=== PATIENT | female | born 1960 | race Caucasian/White ===

== ENCOUNTER 2020-10-21 10:15 | Outpatient (REF) | payer OTHER, SELFPAY ==
[2020-10-21 11:30] LABS: Estimated Average Glucose 160 mg/dL; Hemoglobin A1c % 7.2 %
[2020-10-21 11:35] LABS: Anion Gap 12 (12-20); Blood Urea Nitrogen 15 mg/dL (9-16); Calcium 8.9 mg/dL (8.4-10.2); Carbon Dioxide 30 mmol/L (22-29); Chloride 102 mmol/L (96-108); Cholesterol 276 mg/dL; Estimated Glomerular Filt Rate > 60; Glucose Fasting 156 mg/dL (60-99); HDL Cholesterol 54 mg/dL; LDL Cholesterol Calculated 165 mg/dl; Potassium 4.3 mmol/L (3.3-5.1); Sodium 140 mmol/L (135-145); Triglycerides 285 mg/dL
[2020-10-21 12:02] LABS: Creatinine Urine 111.89 mg/dL; Microalbum/Creatinine Ratio Ur 14.2 ug/mg cr
== END 2020-10-21 10:16 | disposition home or self-care (01) ==
LOC: HO.HMGCLDS 10:15
PROVIDERS: PCP Internal Medicine; Visit Provider Internal Medicine
DX: E13.9 Other specified diabetes mellitus without complications (principal); E78.9 Disorder of lipoprotein metabolism, unspecified; K76.0 Fatty (change of) liver, not elsewhere classified; I10 Essential (primary) hypertension
CPT/HCPCS: 36415; 80048; 80061; 82043; 83036

== ENCOUNTER 2021-05-06 08:29 | Outpatient (REF) | payer OTHER, SELFPAY ==
[2021-05-06 11:37] LABS: MANUAL DIFF FLAG NO
[2021-05-06 11:54] LABS: Basophils Absolute Auto 0.1 X10*3/uL (0.0-0.2); Basophils Percent Auto 0.9 % (0-2); Eosinophils Absolute Auto 0.2 X10*3/uL (0.0-0.4); Eosinophils Percent Auto 2.1 % (0-4); Hematocrit 41.4 % (37-47); Hemoglobin 13.5 g/dl (12.0-16.0); Imm Gran Abs Auto 0.02 X10*3/uL (0.00-0.03); Imm Gran Pct Auto 0.3 % (0.0-0.4); Lymphocytes Absolute Auto 3.1 X10*3/uL (1.2-4.9); Lymphocytes Percent Auto 44.8 % (20-40); Mean Corpuscular HGB Conc 32.6 g/dl (31.0-35.0); Mean Corpuscular Hemoglobin 29.5 pg (27.0-33.0); Mean Corpuscular Volume 90.4 fL (80-98); Mean Platelet Volume 11.5 fL (9.4-12.3); Monocytes Absolute Auto 0.5 X10*3/uL (0.1-1.2); Monocytes Percent Auto 7.7 % (2-11); Neutrophils Absolute Auto 3.1 X10*3/uL (2.0-8.3); Neutrophils Percent Auto 44.2 % (45-73); Platelet Count 257 X10*3/uL (160-400); Red Blood Count 4.58 X10*6/uL (4.20-5.50); Red Cell Distribution Width 12.7 % (11.0-16.0)
[2021-05-06 11:59] LABS: Creatinine Urine 169.47 mg/dL; Microalbum/Creatinine Ratio Ur 4.7 ug/mg cr
[2021-05-06 12:01] LABS: Alanine Aminotransferase 46 U/L (0-31); Alkaline Phosphatase 70 U/L (39-117); Anion Gap 13 (12-20); Aspartate Amino Transferase 28 U/L (5-31); Bilirubin Total 0.4 mg/dL (0.0-1.0); Blood Urea Nitrogen 15 mg/dL (9-16); Calcium 9.3 mg/dL (8.4-10.2); Carbon Dioxide 26 mmol/L (22-29); Chloride 104 mmol/L (96-108); Cholesterol 265 mg/dL; Estimated Glomerular Filt Rate > 60; Glucose Fasting 150 mg/dL (60-99); HDL Cholesterol 46 mg/dL; LDL Cholesterol Calculated 167 mg/dl; Potassium 4.2 mmol/L (3.3-5.1); Sodium 139 mmol/L (135-145); Total Protein 6.9 g/dL (6.5-8.0); Triglycerides 261 mg/dL
[2021-05-06 12:29] LABS: Estimated Average Glucose 143 mg/dL; Hemoglobin A1c % 6.6 %
[2021-05-07 05:51] LABS: LDL Cholesterol Direct 180 mg/dL (<100)
== END 2021-05-06 08:30 | disposition home or self-care (01) ==
LOC: HO.HMGCLDS 08:29
PROVIDERS: PCP Internal Medicine; Visit Provider Internal Medicine
DX: E13.9 Other specified diabetes mellitus without complications (principal); E78.9 Disorder of lipoprotein metabolism, unspecified; I10 Essential (primary) hypertension; K21.9 Gastro-esophageal reflux disease without esophagitis; K76.0 Fatty (change of) liver, not elsewhere classified; E66.09 Other obesity due to excess calories; Z68.32 Body mass index [BMI] 32.0-32.9, adult
CPT/HCPCS: 36415; 80053; 80061; 82043; 83036; 83721; 85025

== ENCOUNTER 2021-07-20 09:09 | Outpatient (REF) | payer OTHER, SELFPAY ==
--- NOTE | ~2021-07-20 | US_ITS ---
EXAMINATION: US ABDOMEN COMPLETE CLINICAL INFORMATION: Right upper quadrant pain. COMPARISON: CT abdomen and pelvis without contrast dated 04/21/2018. Ultrasound abdomen complete dated 04/01/2016. TECHNIQUE: Real-time imaging of the abdominal viscera. FINDINGS: PANCREAS: Normal. ABDOMINAL AORTA: The proximal, mid, and distal segments are normal in caliber. INFERIOR VENA CAVA: Visualized portions are normal. LIVER: Liver is slightly enlarged. Liver echotexture is increased probably representing fatty infiltration. There is a hypoechoic area adjacent to the gallbladder, characteristic location of focal fatty sparing. No other focal hepatic lesion. There is no intrahepatic biliary duct dilatation seen. GALLBLADDER: Normal. COMMON BILE DUCT: Normal in caliber measuring 0.4 cm in diameter. RIGHT KIDNEY: Normal. No hydronephrosis. No renal calculi or focal parenchymal lesions. The kidney measures 11.4 cm in maximum dimension. LEFT KIDNEY: Normal. No hydronephrosis. No renal calculi or focal parenchymal lesions. The kidney measures 11.5 cm in maximum dimension. SPLEEN: Normal. The spleen measures 10 cm in maximum dimension. FREE FLUID: None. US/US abdomen complete IMPRESSION: Enlarged echogenic liver probably representing fatty infiltration.
== END 2021-07-20 09:10 | disposition home or self-care (01) ==
LOC: HO.US 09:09
PROVIDERS: PCP Internal Medicine; Visit Provider Internal Medicine
DX: R10.11 Right upper quadrant pain (principal)
CPT/HCPCS: 76700

== ENCOUNTER 2022-01-01 08:37 | Outpatient (REF) | payer OTHER, SELFPAY ==
--- NOTE | ~2022-01-01 | XR_ITS ---
EXAMINATION: XR CHEST CLINICAL INFORMATION: Acute bronchitis COMPARISON: Previous chest x-ray September 2008 TECHNIQUE: 2 views of the chest were obtained. FINDINGS: The cardiac and mediastinal contours are stable. There is central bronchial wall thickening at the lung bases. The lungs are clear. There is no pleural effusion or pneumothorax. Bony structures are unremarkable. XR/XR chest 2V IMPRESSION: Central bronchial wall thickening of the lung bases. No evidence of pneumonia.
== END 2022-01-01 08:38 | disposition home or self-care (01) ==
LOC: HO.HMGCX 08:37
PROVIDERS: PCP Internal Medicine; Visit Provider Internal Medicine
DX: J20.9 Acute bronchitis, unspecified (principal)
CPT/HCPCS: 71046

== ENCOUNTER 2022-05-18 08:18 | Outpatient (REF) | payer OTHER, SELFPAY ==
[2022-05-18 12:05] LABS: Estimated Average Glucose 203 mg/dL; Hemoglobin A1c % 8.7 %
[2022-05-18 12:35] LABS: Creatinine Urine 123.32 mg/dL; Microalbum/Creatinine Ratio Ur 8.9 ug/mg cr
[2022-05-18 12:40] LABS: Alanine Aminotransferase 32 U/L (0-31); Albumin Level 4.1 g/dL (3.5-5.0); Alkaline Phosphatase 86 U/L (39-117); Anion Gap 15 (12-20); Aspartate Amino Transferase 22 U/L (5-31); Bilirubin Total < 0.2 mg/dL (0.0-1.0); Blood Urea Nitrogen 14 mg/dL (9-16); Calcium 9.4 mg/dL (8.4-10.2); Carbon Dioxide 26 mmol/L (22-29); Chloride 102 mmol/L (96-108); Estimated Glomerular Filt Rate > 60; Glucose Random 222 mg/dL (60-115); Potassium 4.9 mmol/L (3.3-5.1); Sodium 138 mmol/L (135-145); Total Protein 7.1 g/dL (6.5-8.0)
[2022-05-19 10:07] LABS: LDL Cholesterol Direct 212 mg/dL (<100)
== END 2022-05-18 08:19 | disposition home or self-care (01) ==
LOC: HO.CHCLDS 08:18
PROVIDERS: Visit Provider Internal Medicine
DX: K76.0 Fatty (change of) liver, not elsewhere classified (principal); K21.9 Gastro-esophageal reflux disease without esophagitis; E78.9 Disorder of lipoprotein metabolism, unspecified; E66.9 Obesity, unspecified; E13.9 Other specified diabetes mellitus without complications; I10 Essential (primary) hypertension
CPT/HCPCS: 36415; 80053; 82043; 83036; 83721

== ENCOUNTER 2022-06-29 07:22 | Outpatient (REF) | payer OTHER, SELFPAY ==
--- NOTE | ~2022-06-29 | CT_ITS ---
EXAMINATION: CT ABDOMEN AND PELVIS WITH CONTRAST CLINICAL INFORMATION: Right lower quadrant pain COMPARISON: None TECHNIQUE: Multidetector volumetric images were obtained from the superior aspect of the liver through the pubic symphysis following administration 85 mL of Omnipaque 350 intravenous contrast. Sagittal and coronal reformatted images were obtained on the technologist's workstation. Oral contrast: Yes This CT examination was performed using dose optimization techniques as appropriate, variously including the following: *Automated exposure control *Adjustment of mA and/or kV according to patient size (this includes techniques or standardized protocols for targeted exams where dose is matched to indication/reason for exam; i.e. extremities or head) *Use of iterative reconstruction technique DLP: 501 mGy-cm FINDINGS: LUNG BASES: The visualized lung bases are unremarkable. LIVER, GALLBLADDER, AND BILIARY TREE: Fatty infiltration of the liver. No focal hepatic lesion or biliary ductal dilatation is present. The gallbladder is unremarkable with no evidence of radiopaque gallstones, gallbladder wall thickening, or obvious pericholecystic inflammatory changes. PANCREAS: Unremarkable. SPLEEN: Unremarkable. ADRENAL GLANDS: Unremarkable. KIDNEYS AND URETERS: The kidneys are normal in size, shape, and attenuation. No hydronephrosis, hydroureter, or calculi seen. No perinephric stranding. BLADDER: Unremarkable. GASTROINTESTINAL TRACT: The small and large bowel are unremarkable. The appendix is not identified with certainty. No inflammatory changes in the right lower quadrant. ABDOMINAL WALL: No significant hernia is appreciated. LYMPH NODES: Normal. VASCULAR: Unremarkable. PELVIC VISCERA: The uterus is been removed. No pelvic mass. OSSEOUS STRUCTURES: Degenerative changes of the spine. CT/CT abdomen pelvis w IV con IMPRESSION: Appendix not identified with certainty. No inflammatory changes in the right lower quadrant. Fatty liver. Fleischner guidelines were followed.
[2022-06-29] MEDS: iohexoL 350 MG/ML 100 ML INFUS..BTL IV (10:17)
[2022-06-29] MEDS: Barium Sulfate Oral (Mocha) 450 ML ORAL.SUSP 900 ML PO (10:19)
[2022-07-01 10:22] LABS: Creatinine POC 0.7 mg/dL (0.5-1.4); GFR POC > 60
== END 2022-06-29 07:23 | disposition home or self-care (01) ==
LOC: HO.CT 07:22
PROVIDERS: PCP Internal Medicine; Visit Provider Internal Medicine
DX: R10.31 Right lower quadrant pain (principal)
CPT/HCPCS: 74177; 82565; Q9967

== ENCOUNTER → 2022-08-24 08:43 | Outpatient (BNVA) | payer OTHER, SELFPAY | PROVIDERS: PCP Internal Medicine; Visit Provider Physician Assistant | DX: R10.31 Right lower quadrant pain (principal); K76.0 Fatty (change of) liver, not elsewhere classified; D12.6 Benign neoplasm of colon, unspecified | CPT/HCPCS: 99202 ==

== ENCOUNTER 2022-08-31 08:03 | Outpatient (REF) | payer OTHER, SELFPAY ==
[2022-08-31 11:28] LABS: MANUAL DIFF FLAG NO
[2022-08-31 11:30] LABS: Basophils Absolute Auto 0.1 X10*3/uL (0.0-0.2); Basophils Percent Auto 0.5 % (0-2); Eosinophils Absolute Auto 0.1 X10*3/uL (0.0-0.4); Eosinophils Percent Auto 1.1 % (0-4); Hematocrit 43.5 % (37.0-47.0); Hemoglobin 14.2 g/dl (12.0-16.0); Imm Gran Abs Auto 0.04 X10*3/uL (0.00-0.03); Imm Gran Pct Auto 0.4 % (0.0-0.4); Lymphocytes Absolute Auto 3.9 X10*3/uL (1.2-4.9); Lymphocytes Percent Auto 40.1 % (20-40); Mean Corpuscular HGB Conc 32.6 g/dl (31.0-35.0); Mean Corpuscular Hemoglobin 29.3 pg (27.0-33.0); Mean Corpuscular Volume 89.9 fL (80.0-98.0); Mean Platelet Volume 11.9 fL (9.4-12.3); Monocytes Absolute Auto 0.7 X10*3/uL (0.1-1.2); Monocytes Percent Auto 6.8 % (2-11); Neutrophils Percent Auto 51.1 % (45-73); Platelet Count 273 X10*3/uL (160-400); Red Blood Count 4.84 X10*6/uL (4.20-5.50); Red Cell Distribution Width 12.5 % (11.0-16.0); White Blood Count 9.7 X10*3/uL (4.8-10.8)
[2022-08-31 11:51] LABS: Estimated Average Glucose 246 mg/dL; Hemoglobin A1c % 10.2 %
[2022-08-31 12:04] LABS: Cholesterol 198 mg/dL; HDL Cholesterol 45 mg/dL; LDL Cholesterol Calculated 96 mg/dl; Triglycerides 287 mg/dL
== END 2022-08-31 08:04 | disposition home or self-care (01) ==
LOC: HO.HMGCLDS 08:03
PROVIDERS: PCP Internal Medicine; Visit Provider Physician Assistant
DX: R10.31 Right lower quadrant pain (principal); K76.0 Fatty (change of) liver, not elsewhere classified
CPT/HCPCS: 36415; 80061; 83036; 85025

== ENCOUNTER 2023-01-05 06:56 | Outpatient (REF) | payer OTHER, SELFPAY ==
[2023-01-05 11:59] LABS: Alanine Aminotransferase 32 U/L (0-31); Albumin Level 3.9 g/dL (3.5-5.0); Alkaline Phosphatase 61 U/L (39-117); Anion Gap 13 (12-20); Aspartate Amino Transferase 28 U/L (5-31); Bilirubin Total 0.7 mg/dL (0.0-1.0); Blood Urea Nitrogen 14 mg/dL (9-16); Calcium 9.6 mg/dL (8.4-10.2); Carbon Dioxide 26 mmol/L (22-29); Chloride 104 mmol/L (96-108); Estimated Glomerular Filt Rate > 60; Glucose Random 121 mg/dL (60-115); Potassium 4.2 mmol/L (3.3-5.1); Sodium 139 mmol/L (135-145); Total Protein 7.3 g/dL (6.5-8.0)
[2023-01-05 12:13] LABS: Estimated Average Glucose 146 mg/dL; Hemoglobin A1c % 6.7 %
[2023-01-07 11:04] LABS: LDL Cholesterol Direct 99 mg/dL (<100)
== END 2023-01-05 06:57 | disposition home or self-care (01) ==
LOC: HO.HMGCLDS 06:56
PROVIDERS: PCP Internal Medicine; Visit Provider Internal Medicine
DX: E78.9 Disorder of lipoprotein metabolism, unspecified (principal); I10 Essential (primary) hypertension
CPT/HCPCS: 36415; 80053; 83036; 83721

== ENCOUNTER 2023-08-18 07:08 | Outpatient (REF) | payer MEDICARE, SELFPAY ==
[2023-08-18 11:16] LABS: MANUAL DIFF FLAG NO
[2023-08-18 11:45] LABS: Basophils Absolute Auto 0.1 X10*3/uL (0.0-0.2); Eosinophils Absolute Auto 0.1 X10*3/uL (0.0-0.4); Eosinophils Percent Auto 1.1 % (0-4); Hematocrit 43.1 % (37.0-47.0); Imm Gran Abs Auto 0.03 X10*3/uL (0.00-0.03); Imm Gran Pct Auto 0.4 % (0.0-0.4); Lymphocytes Absolute Auto 3.4 X10*3/uL (1.2-4.9); Mean Corpuscular HGB Conc 32.5 g/dl (31.0-35.0); Mean Corpuscular Hemoglobin 29.2 pg (27.0-33.0); Mean Platelet Volume 11.6 fL (9.4-12.3); Monocytes Absolute Auto 0.6 X10*3/uL (0.1-1.2); Monocytes Percent Auto 7.5 % (2-11); Neutrophils Absolute Auto 3.8 x10*3/uL (2.0-8.3); Platelet Count 243 X10*3/uL (160-400); Red Blood Count 4.79 X10*6/uL (4.20-5.50); Red Cell Distribution Width 12.4 % (11.0-16.0)
[2023-08-18 11:47] LABS: Estimated Average Glucose 151 mg/dL; Hemoglobin A1c % 6.9 % (<6.0)
[2023-08-18 11:52] LABS: Alanine Aminotransferase 27 U/L (0-31); Alkaline Phosphatase 70 U/L (39-117); Anion Gap 11 (12-20); Aspartate Amino Transferase 22 U/L (5-31); Bilirubin Total 0.4 mg/dL (0.0-1.0); Blood Urea Nitrogen 15 mg/dL (9-16); Calcium 9.5 mg/dL (8.4-10.2); Carbon Dioxide 29 mmol/L (22-29); Chloride 103 mmol/L (96-108); Cholesterol 288 mg/dL (<200); Estimated Glomerular Filt Rate > 60; Glucose Random 160 mg/dL (60-115); HDL Cholesterol 51 mg/dL (>40); LDL Cholesterol Calculated 197 mg/dL (<100); Potassium 4.5 mmol/L (3.3-5.1); Sodium 138 mmol/L (135-145); Total Protein 7.3 g/dL (6.5-8.0); Triglycerides 201 mg/dL (<150)
[2023-08-18 12:18] LABS: Microalbum/Creatinine Ratio Ur 8.6 ug/mg cr (<30)
[2023-08-19 14:22] LABS: LDL Cholesterol Direct 212 mg/dL (<100)
== END 2023-08-18 07:09 | disposition home or self-care (01) ==
LOC: HO.HMGCLDS 07:08
PROVIDERS: PCP Internal Medicine; Visit Provider Internal Medicine
DX: I10 Essential (primary) hypertension (principal); E13.9 Other specified diabetes mellitus without complications; K76.0 Fatty (change of) liver, not elsewhere classified; E78.9 Disorder of lipoprotein metabolism, unspecified; K21.9 Gastro-esophageal reflux disease without esophagitis; E66.9 Obesity, unspecified
CPT/HCPCS: 36415; 80053; 80061; 82043; 82570; 83036; 83721; 85025

== ENCOUNTER 2023-10-05 12:00 | Outpatient (AMB) | payer MEDICARE, SELFPAY ==
--- NOTE | 2023-10-05 12:01 | MHC.PC.OV ---
Vital Signs 10/05/23 12:02 Height 5 ft 3 in Weight 178 lb 2 oz BMI 31.5 BP 140/74 H Blood Pressure Location Rt brachial Position Sitting Pulse 110 H Pulse Source Pulse Oximeter Pulse Oximetry (%) 97 Oxygen Delivery Method Room Air Intake Visit Reasons: Blood Sugar F/U Allergies Penicillins Allergy (Mild, Verified 01/12/23 10:10) RASH Medication List - Last Reconciled 10/05/23 by Isiah Oliva MD blood sugar diagnostic (FreeStyle Lite Strips) Use to check fasting blood sugar and random blood sugar daily blood-glucose meter (FreeStyle Lite Meter kit) Use to check fasting blood sugar and a random blood sugar during the day. cholecalciferol (vitamin D3) 10 mcg PO DAILY estradiol 1 patch transdermal 2XW glipizide 10 mg PO BID 30 days lancets (FreeStyle Lancets) Use to check fasting blood sugar and random blood sugar daily lisinopril 30 mg PO DAILY 30 days Tobacco use date assessed: 10/05/23 Fall risk assessment: No Falls in past year Last assessed Fall Risk: 10/05/23 HPI Blood Sugar F/U HPI Details Patient is 63-year-old female came in today for follow-up appointment Last time seen was December of last year, patient was supposed to come in in 4 months for follow-up appointment but she did not Lipid disorder: LDL is 212, she stopped statin in May when she lost insurance I have sent small dose of rosuvastatin 5 mg to start, she was on 40 mg of simvastatin before, patient is reluctant to start the medications so I am starting it slow She has been exercising and has noticed that her sugar dropped when she walks I am reducing the dose of glipizide to 10 mg at night and 5 mg in the morning, her hemoglobin A1c came back at 6.9 Right-sided sciatica : She has had cortisone injection by [facility] and spine in the past currently having similar pain radiating to right leg However patient says that at this time she is taking it easy and will see if it gets better. Blood pressure is stable, she is on Lisinopril 30 mg BMI is elevated need to lose weight Follow-up 4 months labs to be repeated before visit [facility] Medical History Lipid disorder Chronic GERD Fatty liver Diabetes 1.5, managed as type 2 Hypertension, essential Surgical History H/O colonoscopy History of esophagogastroduodenoscopy (EGD) History of microdiscectomy History of hysterectomy History of appendectomy History of tonsillectomy History of section Family History Father CVD (cardiovascular disease) History of heart attack Mother Mouth cancer Diabetes mellitus History of open heart surgery Brother Heart problem Brother History of open heart surgery Brother History of open heart surgery Daughter No problems noted. Son No problems noted. Son No problems noted. Sister No problems noted. Sister No problems noted. Sister No problems noted. Sister No problems noted. Social History Housing: House Alcohol intake: current Alcohol intake frequency: a few times a month Patient Tobacco Use Status: Former Tobacco user Years Smoked: 5 yrs e-Cigarette/Vaping Use: Never Used Current occupational status: unemployed Cognitive needs: No Hearing needs: No Vision needs: Yes Questionnaire Thrive Questionnaire Date Thrive assessed: 04/29/21 Review of Systems Const Denies chills and Denies fever(s) ENT Denies epistaxis and Denies nasal discharge Card Denies chest pain Resp Denies chest congestion, Denies cough and Denies hemoptysis GI Denies diarrhea and Denies nausea Skin/Breast Denies rash Neuro Reports no additional complaints Psych Reports no additional complaints Endo Reports no additional complaints Physical exam (Primary Care) Vital Signs: Last Vital Signs Pulse 110 H 10/05/23 12:02 BP 140/74 H 10/05/23 12:02 Pulse Ox 97 10/05/23 12:02 Oxygen Delivery Method Room Air 10/05/23 12:02 BMI result Body Mass Index 31.5 Tobacco/Smoking Status: Tobacco use Status Tobacco use date assessed 10/05/23 10/05/23 12:08 Patient Tobacco Use Status Former Tobacco user 10/05/23 12:03 e-Cigarette/Vaping Use Never Used 10/05/23 12:03 Thrive Assessment: Date of Thrive Assessment Date Thrive assessed 04/29/21 10/05/23 12:03 Const General: cooperative, comfortable and no acute distress Orientation/consciousness: patient oriented x3 [facility] Head: Yes normocephalic Eyes General: appearance normal, both eyes and all related structures Neck Neck: Yes supple Resp Effort & Inspection: normal respiratory effort, no cough and no stridor Cardio Rhythm: regular rhythm Heart sounds: S1 normal heart sound present and S2 normal heart sound present Skin General skin exam: turgor normal Neuro General: patient oriented x3, tone normal and moves all extremities Extrem Right lower extremity: no edema Left lower extremity: no edema Assessment and Plan Assessment & Plan (1) Hypertension, essential: Code(s): I10 - Essential (primary) hypertension (2) Fatty liver: Code(s): K76.0 - Fatty (change of) liver, not elsewhere classified (3) Chronic GERD: Code(s): K21.9 - Gastro-esophageal reflux disease without esophagitis (4) Lipid disorder: Code(s): E78.9 - Disorder of lipoprotein metabolism, unspecified (5) Obesity: Code(s): E66.9 - Obesity, unspecified Qualifiers: Body mass index: BMI 32.0-32.9 Obesity classification: adult class 1 (BMI 30 - 34.9) Obesity type: due to excess calories Serious obesity comorbidity presence: with serious comorbidity Qualified Code(s): E66.09 - Other obesity due to excess calories; Z68.32 - Body mass index [BMI] 32.0-32.9, adult (6) Diabetes 1.5, managed as type 2: Code(s): E13.9 - Other specified diabetes mellitus without complications Plan Patient is 63-year-old female came in today for follow-up appointment Last time seen was December of last year, patient was supposed to come in in 4 months for follow-up appointment but she did not Lipid disorder: LDL is 212, she stopped statin in May when she lost insurance I have sent small dose of rosuvastatin 5 mg to start, she was on 40 mg of simvastatin before, patient is reluctant to start the medications so I am starting it slow She has been exercising and has noticed that her sugar dropped when she walks I am reducing the dose of glipizide to 10 mg at night and 5 mg in the morning, her hemoglobin A1c came back at 6.9 Right-sided sciatica : She has had cortisone injection by [facility] and spine in the past currently having similar pain radiating to right leg However patient says that at this time she is taking it easy and will see if it gets better. Blood pressure is stable, she is on Lisinopril 30 mg BMI is elevated need to lose weight Follow-up 4 months labs to be repeated before visit Orders: Orders Microalbumin, Random (w Creat) 3 Months E13.9 - Other specified diabetes mellitus without complications, E66.9 - Obesity, unspecified, E78.9 - Disorder of lipoprotein metabolism, unspecified, I10 - Essential (primary) hypertension, K21.9 - Gastro-esophageal reflux disease without esophagitis, K76.0 - Fatty (change of) liver, not elsewhere classified Hemoglobin A1c 3 Months E13.9 - Other specified diabetes mellitus without complications, E66.9 - Obesity, unspecified, E78.9 - Disorder of lipoprotein metabolism, unspecified, I10 - Essential (primary) hypertension, K21.9 - Gastro-esophageal reflux disease without esophagitis, K76.0 - Fatty (change of) liver, not elsewhere classified Comprehensive [place]. Panel Fast 3 Months E13.9 - Other specified diabetes mellitus without complications, E66.9 - Obesity, unspecified, E78.9 - Disorder of lipoprotein metabolism, unspecified, I10 - Essential (primary) hypertension, K21.9 - Gastro-esophageal reflux disease without esophagitis, K76.0 - Fatty (change of) liver, not elsewhere classified Lipid Panel 3 Months E13.9 - Other specified diabetes mellitus without complications, E66.9 - Obesity, unspecified, E78.9 - Disorder of lipoprotein metabolism, unspecified, I10 - Essential (primary) hypertension, K21.9 - Gastro-esophageal reflux disease without esophagitis, K76.0 - Fatty (change of) liver, not elsewhere classified Medications: Refilled rosuvastatin 5 mg PO DAILY 90 tabs 0RF 90 days Coding Level of Care Code Est Pt Level 4 (00174) Diagnoses Hypertension, essential I10 Fatty liver K76.0 Chronic GERD K21.9 Lipid disorder E78.9 Class 1 obesity due to excess calories with serious comorbidity and body mass index (BMI) of 32.0 to 32.9 in adult E66.09; Z68.32 Body mass index: BMI 32.0-32.9 Obesity classification: adult class 1 (BMI 30 - 34.9) Obesity type: due to excess calories Serious obesity comorbidity presence: with serious comorbidity Diabetes 1.5, managed as type 2 E13.9
[2023-10-05 12:02] VITALS: BP 140/74; PULSE 110; O2SAT 97; BMI 31.5
== END 2023-10-05 12:19 | disposition home or self-care (01) ==
PROVIDERS: PCP Internal Medicine; Visit Provider Internal Medicine
DX: I10 Essential (primary) hypertension (principal); K76.0 Fatty (change of) liver, not elsewhere classified; K21.9 Gastro-esophageal reflux disease without esophagitis; E13.9 Other specified diabetes mellitus without complications; E78.9 Disorder of lipoprotein metabolism, unspecified; E66.09 Other obesity due to excess calories; Z68.32 Body mass index [BMI] 32.0-32.9, adult
CPT/HCPCS: 99214

== ENCOUNTER 2024-02-06 06:26 | Outpatient (REF) | payer MEDICARE, SELFPAY ==
[2024-02-06 10:14] LABS: MANUAL DIFF FLAG NO
[2024-02-06 10:16] LABS: Basophils Absolute Auto 0.1 X10*3/uL (0.0-0.2); Basophils Percent Auto 0.7 % (0-2); Eosinophils Absolute Auto 0.1 X10*3/uL (0.0-0.4); Eosinophils Percent Auto 1.5 % (0-4); Hemoglobin 13.3 g/dl (12.0-16.0); Imm Gran Abs Auto 0.03 X10*3/uL (0.00-0.03); Imm Gran Pct Auto 0.4 % (0.0-0.4); Lymphocytes Absolute Auto 3.3 X10*3/uL (1.2-4.9); Lymphocytes Percent Auto 38.8 % (20-40); Mean Corpuscular HGB Conc 32.4 g/dl (31.0-35.0); Mean Corpuscular Hemoglobin 29.2 pg (27.0-33.0); Mean Corpuscular Volume 90.1 fL (80.0-98.0); Mean Platelet Volume 11.3 fL (9.4-12.3); Monocytes Absolute Auto 0.6 X10*3/uL (0.1-1.2); Monocytes Percent Auto 7.1 % (2-11); Neutrophils Absolute Auto 4.4 x10*3/uL (2.0-8.3); Neutrophils Percent Auto 51.5 % (45-73); Platelet Count 252 X10*3/uL (160-400); Red Blood Count 4.55 X10*6/uL (4.20-5.50); Red Cell Distribution Width 12.8 % (11.0-16.0); White Blood Count 8.5 X10*3/uL (4.8-10.8)
[2024-02-06 10:24] LABS: Estimated Average Glucose 148 mg/dL; Hemoglobin A1c % 6.8 % (<6.0)
[2024-02-06 10:43] LABS: Alanine Aminotransferase 24 U/L (0-31); Alkaline Phosphatase 67 U/L (39-117); Anion Gap 13 (12-20); Aspartate Amino Transferase 19 U/L (5-31); Bilirubin Total 0.5 mg/dL (0.0-1.0); Blood Urea Nitrogen 12 mg/dL (9-16); Calcium 9.5 mg/dL (8.4-10.2); Carbon Dioxide 27 mmol/L (22-29); Chloride 105 mmol/L (96-108); Cholesterol 187 mg/dL (<200); Estimated Glomerular Filt Rate > 60; Glucose Fasting 154 mg/dL (60-99); HDL Cholesterol 55 mg/dL (>40); LDL Cholesterol Calculated 96 mg/dL (<100); Potassium 4.2 mmol/L (3.3-5.1); Sodium 141 mmol/L (135-145); Total Protein 7.1 g/dL (6.5-8.0); Triglycerides 182 mg/dL (<150)
[2024-02-06 10:45] LABS: Creatinine Urine 109.78 mg/dL; Microalbumin Urine < 5.0 mg/L
== END 2024-02-06 06:27 | disposition home or self-care (01) ==
LOC: HO.HMGCLDS 06:26
PROVIDERS: PCP Internal Medicine; Visit Provider Internal Medicine
DX: E13.9 Other specified diabetes mellitus without complications (principal); I10 Essential (primary) hypertension; K76.0 Fatty (change of) liver, not elsewhere classified; E78.9 Disorder of lipoprotein metabolism, unspecified; K21.9 Gastro-esophageal reflux disease without esophagitis; E66.9 Obesity, unspecified
CPT/HCPCS: 36415; 80053; 80061; 82570; 83036; 85025

== ENCOUNTER 2024-02-10 08:31 | Outpatient (AMB) | payer MEDICARE, SELFPAY ==
[2024-02-10 08:35] VITALS: BP 136/80; PULSE 99; O2SAT 74; BMI 31.9
--- NOTE | 2024-02-10 08:35 | A.OFFVIS_ITS ---
Intake Vital Signs 02/10/24 08:35 02/10/24 08:57 Height 5 ft 3 in Weight 180 lb 4 oz BMI 31.9 BP 136/80 Blood Pressure Location Rt brachial Position Sitting Pulse 99 Pulse Source Pulse Oximeter Pulse Oximetry (%) 74 L 97 Oxygen Delivery Method Room Air Room Air Intake Visit Reasons: AWV G0438 Allergies Penicillins Allergy (Mild, Verified 02/10/24 08:40) RASH Medication List - Last Reconciled 02/10/24 by Isiah Oliva MD blood sugar diagnostic (FreeStyle Lite Strips) Use to check fasting blood sugar and random blood sugar daily blood-glucose meter (FreeStyle Lite Meter kit) Use to check fasting blood sugar and a random blood sugar during the day. cholecalciferol (vitamin D3) 10 mcg PO DAILY estradiol 1 patch transdermal 2XW glipizide 10 mg PO BID 90 days lancets (FreeStyle Lancets) Use to check fasting blood sugar and random blood sugar daily lisinopril 30 mg PO DAILY 30 days rosuvastatin 5 mg PO DAILY 90 days Do you need a note to return to daycare/school/sports/work: No HPI AWV G0438 HPI Details Patient is 64-year-old female came in today for follow-up appointment She is doing very well Has changed her eating habits and exercising She tells me that she feels good Lipid disorder: She has started taking rosuvastatin 5 mg her LDL has gone down to 80s, patient has no side effects Diabetes: Hemoglobin A1c is 6.8, patient is on 10 mg b.i.d. of glipizide Right-sided sciatica : Stable Blood pressure is stable, she is on Lisinopril 30 mg BMI is elevated patient is losing weight gradually Follow-up : Patient is requesting six-month follow-up rather than 4, since she is doing so well that will be fine Labs are needed before visit HPI Comments History of Present Illness Details AWV Medical/social history reviewed Past medical history reviewed [place] of care / care team list updated Surgical/ hospitalization history reviewed Current medications including OTC and supplements reviewed Family history reviewed Tobacco controlled form updated Alcohol use form updated Illicit drug use in social history reviewed Current diagnosis of depression ?screening updated Appropriate PHQ 2/PHQ-9 completed . Vital signs reviewed Alcohol tobacco drug use reviewed and discussed . MMSE completed . ? Fall risk: ?Assessed Fall history: ?None Have you had any falls with injury in the past year?? No Have you had 2 or more falls in the past year?? No Fall risk assessment completed Home safety discussed with the patient Functional ability assessed and discussed and documented Activities of daily living reviewed and appropriate actions taken . HRA filled out by the patient and reviewed by provider and scanned . Appropriate written screening schedule established . Any health advise needed provided . Advance care planning discussed with the patient , necessary paperwork filled Examination IPPE/AWE: Balance intact Romberg intact Tandem walk intact walk-in turn intact rise from sit to stand intact . ?Hearing ?whisper test pass . Medication list reviewed, patient is stable on medications All other providers patient is seeing discussed and noted . [facility] Medical History Lipid disorder Chronic GERD Fatty liver Diabetes 1.5, managed as type 2 Hypertension, essential Surgical History H/O colonoscopy History of esophagogastroduodenoscopy (EGD) History of microdiscectomy History of hysterectomy History of appendectomy History of tonsillectomy History of section Family History Father CVD (cardiovascular disease) History of heart attack Mother Mouth cancer Diabetes mellitus History of open heart surgery Brother Heart problem Brother History of open heart surgery Brother History of open heart surgery Daughter No problems noted. Son No problems noted. Son No problems noted. Sister No problems noted. Sister No problems noted. Sister No problems noted. Sister No problems noted. Social History Housing: House Alcohol intake: current Alcohol intake frequency: a few times a month Patient Tobacco Use Status: Former Tobacco user Years Smoked: 5 yrs e-Cigarette/Vaping Use: Never Used Current occupational status: unemployed Cognitive needs: No Hearing needs: No Vision needs: Yes Questionnaire Medicare Wellness Checkup What [age] 65-67 What gender do you identify with?: female During the past 4 weeks, how much have you been bothered by emotional problems such as feeling anxious, depressed, irritable, sad or downhearted, and blue?: not at all During the past 4 weeks, has your physical & emotional health limited your social activities with family, friends, neighbors, or groups?: not at all During the past 4 weeks, how much bodily pain have you generally had?: no pain During the past 4 weeks, was someone available to help you if you needed & wanted help?: no, not at all During the past 4 weeks, what was the hardest physical activity you could do for at least 2 minutes?: moderate Can you get to places out of walking distance without help? (For eg., can you travel alone on buses, taxis or drive your car?): Yes Can you go shopping for groceries or clothes without someone's help?: Yes Can you prepare your own meals?: Yes Can you do your housework without help?: Yes Because of any health problems, do you need the help of another person with your personal care needs such as eating, bathing, dressing or getting around the house?: No Can you handle your own money without help?: Yes During the past 4 weeks, how would you rate your health in general?: excellent During the past 4 weeks how have things been going for you?: pretty well Are you having difficulties driving your car?: no Do you always fasten your seat belt when you are in a car?: yes, usually During past 4 weeks, have you been bothered by the following: never: Falling or dizzy when standing up, Sexual problems?, Trouble eating well?, Teeth or denture problems?, Problems using the telephone? and Tiredness or fatigue? Have you fallen 2 or more times in the past year?: No Are you afraid of falling?: No Are you a smoker?: no During the past 4 weeks, how many drinks of wine, beer, or other alcoholic beverages did you have?: no alcohol at all Do you exercise for about 20 minutes 3 or more times a week?: yes, most of the time Have you been given information to help with the following?: yes: Hazards in your house that might hurt you? and yes: Keeping track of your medications? How often do you have trouble taking medicines the way you have been told to take them?: I always take medicine as prescribed How confident are you that you can control & manage most of your health problems?: very confident What is your race?: Other Mini Mental State Exam (MMSE) Orientation What is the (year) (season) (date) (day) (month)?: year, season, date, day and month Where are we (state) (county) (town or city) (hospital) (floor)?: state, county, town or city, hospital/clinic and floor Score Score: 10 Activity of Daily Living Bathing - sponge bath, tub bath or shower: receives no assistance (gets in/out by self, if usual bathing means Dressing - getting clothes from closets & drawers, including inner/outer garments & fasteners.: gets clothes & gets completely dressed without help Toileting - going to the 'toilet room' for urine/bowel elimination & cleaning self/arranging clothes: goes to toilet room, cleans self, arranges clothes without help Transfer: moves in & out of bed and chair without help (may use support object) Continence: controls urination/bowel movements completely by self Feeding: feeds self without help Total Score: 0 Information obtained from: patient Using telephone: independent Traveling: independent Shopping: independent Preparing meals: independent Housework: independent Taking medicine: independent Managing money: independent PHQ-9 Over the last 2 weeks, how often have you been bothered by any of the following problems? 1. Little interest or pleasure in doing things: not at all 2. Feeling down, depressed, or hopeless: not at all 3. Trouble falling or staying asleep, or sleeping too much: not at all 4. Feeling tired or having little energy: not at all 5. Poor appetite or overeating: not at all 6. Feeling bad about yourself - or that you are a failure or have let yourself or your family down: not at all 7. Trouble concentrating on things, such as reading the newspaper or watching television: not at all 8. Moving or speaking so slowly that other people could have noticed. Or the opposite - being so fidgety or restless that you have been moving around a lot more than usual: not at all 9. Thoughts that you would be better off or of hurting yourself in some way: not at all Total score: 0 Depression Screening Interpretation: Negative Depression Screening Done: Yes 02583 - PHQ-9 Billing: Yes Source: Developed by Drs. Felipe L. TimSigrid larose, Charles Nye and colleagues, with an educational sabina from [employer]. Review of Systems Const Denies chills and Denies fever(s) ENT Denies epistaxis and Denies nasal discharge Card Denies chest pain Resp Denies chest congestion, Denies cough and Denies hemoptysis GI Denies diarrhea and Denies nausea Skin/Breast Denies rash Neuro Reports no additional complaints Psych Reports no additional complaints Endo Reports no additional complaints Physical Exam Vital Signs: Last Vital Signs Pulse 99 02/10/24 08:35 BP 136/80 02/10/24 08:35 Pulse Ox 97 02/10/24 08:57 Oxygen Delivery Method Room Air 02/10/24 08:57 BMI result Body Mass Index 31.9 Const General: cooperative, comfortable and no acute distress Orientation/consciousness: patient oriented x3 HEENT Head: Yes normocephalic Eyes General: appearance normal, both eyes and all related structures Neck Other: Supple Neck: Yes supple Resp Effort & Inspection: normal respiratory effort, no cough and no stridor Cardio Rhythm: regular rhythm Heart sounds: S1 normal heart sound present and S2 normal heart sound present Skin General skin exam: turgor normal Neuro Other: Motor sensory intact General: patient oriented x3, tone normal and moves all extremities Extrem Other: No lower extremity swelling. Right lower extremity: no edema Left lower extremity: no edema Psych Other: Normal effect, speech clear Assessment & Plan Assessment & Plan (1) Medicare annual wellness visit, initial: Code(s): Z00.00 - Encounter for general adult medical examination without abnormal findings (2) Diabetes 1.5, managed as type 2: Code(s): E13.9 - Other specified diabetes mellitus without complications (3) Hypertension, essential: Code(s): I10 - Essential (primary) hypertension (4) Chronic GERD: Code(s): K21.9 - Gastro-esophageal reflux disease without esophagitis (5) Lipid disorder: Code(s): E78.9 - Disorder of lipoprotein metabolism, unspecified (6) Obesity due to excess calories: Code(s): E66.09 - Other obesity due to excess calories Qualifiers: Body mass index: BMI 31.0-31.9 Obesity classification: adult class 1 (BMI 30 - 34.9) Serious obesity comorbidity presence: with serious comorbidity Qualified Code(s): E66.09 - Other obesity due to excess calories; Z68.31 - Body mass index [BMI] 31.0-31.9, adult Plan Patient is 64-year-old female came in today for follow-up appointment She is doing very well Has changed her eating habits and exercising She tells me that she feels good Lipid disorder: She has started taking rosuvastatin 5 mg her LDL has gone down to 80s, patient has no side effects Diabetes: Hemoglobin A1c is 6.8, patient is on 10 mg b.i.d. of glipizide Right-sided sciatica : Stable Blood pressure is stable, she is on Lisinopril 30 mg BMI is elevated patient is losing weight gradually Follow-up : Patient is requesting six-month follow-up rather than 4, since she is doing so well that will be fine Labs are needed before visit Orders: Orders Hemoglobin A1c Today E13.9 - Other specified diabetes mellitus without complications, E78.9 - Disorder of lipoprotein metabolism, unspecified Lipid Panel Today E13.9 - Other specified diabetes mellitus without complications, E78.9 - Disorder of lipoprotein metabolism, unspecified Microalbumin, Random (w Creat) Today E13.9 - Other specified diabetes mellitus without complications, E78.9 - Disorder of lipoprotein metabolism, unspecified Complete Blood Count Auto Diff Today E13.9 - Other specified diabetes mellitus without complications, E78.9 - Disorder of lipoprotein metabolism, unspecified Comprehensive [place]. Panel Fast Today E13.9 - Other specified diabetes mellitus without complications, E78.9 - Disorder of lipoprotein metabolism, unspecified Medications: Refilled glipizide 10 mg PO BID 180 tabs 1RF 90 days E13.9 - Other specified diabetes mellitus without complications rosuvastatin 5 mg PO DAILY 90 tabs 1RF 90 days lancets (FreeStyle Lancets) Use to check fasting blood sugar and random blood sugar daily 100 ea 3RF E13.9 - Other specified diabetes mellitus without complications lisinopril partial refill as patient missed her apt 30 mg PO DAILY 90 tabs 1RF 30 days I10 - Essential (primary) hypertension blood sugar diagnostic (FreeStyle Lite Strips) Use to check fasting blood sugar and random blood sugar daily 100 ea 3RF E13.9 - Other specified diabetes mellitus without complications Quality Reporting (2019) Depression/Bipolar (159/160/161/177) PHQ-9: Total score: 0 Coding Level of Care Code Medicare First (G0438) Est Pt Level 4 (07248) Diagnoses Medicare annual wellness visit, initial Z00.00 Diabetes 1.5, managed as type 2 E13.9 Hypertension, essential I10 Chronic GERD K21.9 Lipid disorder E78.9 Class 1 obesity due to excess calories with serious comorbidity and body mass index (BMI) of 31.0 to 31.9 in adult E66.09; Z68.31 Body mass index: BMI 31.0-31.9 Obesity classification: adult class 1 (BMI 30 - 34.9) Serious obesity comorbidity presence: with serious comorbidity CPT Codes Advance Care Planning - Time spent: 1-15 minutes, not on file ([id number]) Advance Care Planning Advance Care Planning discussion: Completed/Scanned Forms completed: NICOLASA Time spent: 1-15 minutes, not on file
[2024-02-10 08:57] VITALS: O2SAT 97
== END 2024-02-10 17:41 | disposition home or self-care (01) ==
LOC: HO.HMGC 08:31
PROVIDERS: PCP Internal Medicine; Visit Provider Internal Medicine
DX: Z00.00 Encounter for general adult medical examination without abnormal findings (principal); E13.9 Other specified diabetes mellitus without complications; I10 Essential (primary) hypertension; K21.9 Gastro-esophageal reflux disease without esophagitis; E78.9 Disorder of lipoprotein metabolism, unspecified; E66.09 Other obesity due to excess calories; Z68.31 Body mass index [BMI] 31.0-31.9, adult
CPT/HCPCS: 1124F; 99214; G0438

== ENCOUNTER 2025-02-26 08:21 | Outpatient (AMB) | payer MEDICARE, MEDICAID, SELFPAY ==
[2025-02-26 08:26] VITALS: BP 138/78; PULSE 85; RESP 16; O2SAT 95; BMI 33.1
--- NOTE | 2025-02-26 08:26 | A.OFFVIS_ITS ---
Intake Vital Signs 02/26/25 08:26 Height 5 ft 3 in Weight 187 lb BMI 33.1 BP 138/78 Blood Pressure Location Lt brachial Position Sitting Respiration 16 Pulse 85 Pulse Source Pulse Oximeter Pulse Oximetry (%) 95 Oxygen Delivery Method Room Air Intake Visit Reasons: AWV Composing Room Supervisor Required: No Allergies Penicillins Allergy (Mild, Verified 02/26/25 08:26) RASH Medication List - Last Reconciled 02/26/25 by Isiah Oliva MD blood sugar diagnostic (FreeStyle Lite Strips) Use to check fasting blood sugar and random blood sugar daily blood-glucose meter (FreeStyle Lite Meter kit) Use to check fasting blood sugar and a random blood sugar during the day. cholecalciferol (vitamin D3) 10 mcg PO DAILY estradiol 1 patch topical 2XW glipizide 10 mg PO BID 90 days lancets (FreeStyle Lancets) Use to check fasting blood sugar and random blood sugar daily lisinopril 30 mg PO DAILY 30 days rosuvastatin 5 mg PO DAILY 90 days Do you need a note to return to daycare/school/sports/work: No HPI AWV HPI Details Chief Complaint The patient presents for a Medicare wellness visit with a request to discuss diabetes management options. History of Present Illness The patient is a 65-year-old female presenting with diabetes management concerns. has not come for follow up in over one year when asked why, patient states she dont like coming to visits, explained to patient that meds will not be filled without proper monitoring Diabetes: - The patient reports not having used te st strips recently as prescriptions were rejected at the pharmacy. - The patient mentions interest in medic ation for weight loss and blood sugar control. - Reports challenges with blood sugar mo nitoring due to a lapse in attending r egular appointments. Weight Gain: - The patient acknowledges a weight gain of 7 pounds over the past year. - The patient attributes decreased physi lucero activity due to plantar fasciitis. - Mentions desire to discuss medications such as Wegovy for assistance with weight management. Medical History: - Diabetes Mellitus - Hypertension - Hyperlipidemia - Obesity - non compliance with regular f.u apt Medications: - Glipizide 10 mg twice daily for diabet es thought currently taking one tab in am and half in pm - Lisinopril 30 mg for hypertension - Rosuvastatin 5 mg for hyperlipidemia - Estrogen patch twice a week for menopa usal symptoms thru Obgyn Social History: - Reports decreased physical activity du e to plantar fasciitis, resulting in weight gain right foot - Mentions performing at-home exercises like those using a [employer] Diagnostic Results: - Labs: Prior Hemoglobin A1c was 6.8% in January of the previous year Problem List - Diabetes Mellitus - Hypertension - Hyperlipidemia - Recent Weight Gain - has not been seen in over one year Patient Instructions - Schedule and attend laboratory tests t omorrow for fasting labs. - Await scheduling call for mammogram an d colonoscopy. - Monitor weight through increased physi lucero activity as tolerated. - Continue current medication regimen. - Return for follow-up after completing laboratory work starting semaglutide injections Review of Systems. - General: No fever no chills - Neurological: No headaches no dizziness - Ear nose throat: No sore throat no hearing difficulty no ear pain - Cardiovascular: No syncope, no chest pain, no palpitations - Gastrointestinal: No nausea vomiting or diarrhea - Endocrine: No polyuria polydipsia no heat intolerance - Genitourinary: No dysuria , no blood in urine Physical Exam General: No acute distress HEENT: No acute findings Neck: Supple Respiratory system: Able to talk in full sentences, no audible wheeze Cardiovascular: S1-S2 regular in rate and rhythm Gastrointestinal: No abdominal pain Extremities: No swelling, no new findings CHEMICAL APPLICATOR: Alert awake oriented x3 motor sensory intact Skin: Normal turgor HPI Comments History of Present Illness Details AWV Medical/social history reviewed Past medical history reviewed [place] of care / care team list updated Surgical/ hospitalization history reviewed Current medications including OTC and supplements reviewed Family history reviewed Tobacco controlled form updated Alcohol use form updated Illicit drug use in social history reviewed Current diagnosis of depression ?screening updated Appropriate PHQ 2/PHQ-9 completed . Vital signs reviewed Alcohol tobacco drug use reviewed and discussed . MMSE completed . ? Fall risk: ?Assessed Fall history: ?None Have you had any falls with injury in the past year?? No Have you had 2 or more falls in the past year?? No Fall risk assessment completed Home safety discussed with the patient Functional ability assessed and discussed and documented Activities of daily living reviewed and appropriate actions taken . HRA filled out by the patient and reviewed by provider and scanned . Appropriate written screening schedule established . Any health advise needed provided . Advance care planning discussed with the patient , necessary paperwork filled Examination IPPE/AWE: Balance intact Romberg intact Tandem walk intact walk-in turn intact rise from sit to stand intact . ?Hearing ?whisper test pass . Medication list reviewed, patient is stable on medications All other providers patient is seeing discussed and noted . [facility] Medical History Lipid disorder Chronic GERD Fatty liver Diabetes 1.5, managed as type 2 Hypertension, essential Surgical History H/O colonoscopy History of esophagogastroduodenoscopy (EGD) History of microdiscectomy History of hysterectomy History of appendectomy History of tonsillectomy History of section Family History Father CVD (cardiovascular disease) History of heart attack Mother Mouth cancer Diabetes mellitus History of open heart surgery Brother Heart problem Brother History of open heart surgery Brother History of open heart surgery Daughter No problems noted. Son No problems noted. Son No problems noted. Sister No problems noted. Sister No problems noted. Sister No problems noted. Sister No problems noted. Social History Housing: House Alcohol intake: current Alcohol intake frequency: a few times a month Patient Tobacco Use Status: Former Tobacco user Years Smoked: 5 yrs e-Cigarette/Vaping Use: Never Used Current occupational status: unemployed Cognitive needs: No Hearing needs: No Vision needs: Yes Questionnaire Medicare Wellness Checkup What [age] What gender do you identify with?: female During the past 4 weeks, how much have you been bothered by emotional problems such as feeling anxious, depressed, irritable, sad or downhearted, and blue?: not at all During the past 4 weeks, has your physical & emotional health limited your social activities with family, friends, neighbors, or groups?: not at all During the past 4 weeks, how much bodily pain have you generally had?: no pain During the past 4 weeks, was someone available to help you if you needed & wanted help?: no, not at all During the past 4 weeks, what was the hardest physical activity you could do for at least 2 minutes?: moderate Can you get to places out of walking distance without help? (For eg., can you travel alone on buses, taxis or drive your car?): Yes Can you go shopping for groceries or clothes without someone's help?: Yes Can you prepare your own meals?: Yes Can you do your housework without help?: Yes Because of any health problems, do you need the help of another person with your personal care needs such as eating, bathing, dressing or getting around the house?: No Can you handle your own money without help?: Yes During the past 4 weeks, how would you rate your health in general?: excellent During the past 4 weeks how have things been going for you?: pretty well Are you having difficulties driving your car?: no Do you always fasten your seat belt when you are in a car?: yes, usually During past 4 weeks, have you been bothered by the following: never: Falling or dizzy when standing up, Sexual problems?, Trouble eating well?, Teeth or denture problems?, Problems using the telephone? and Tiredness or fatigue? Have you fallen 2 or more times in the past year?: No Are you afraid of falling?: No Are you a smoker?: no During the past 4 weeks, how many drinks of wine, beer, or other alcoholic beverages did you have?: no alcohol at all Do you exercise for about 20 minutes 3 or more times a week?: yes, most of the time Have you been given information to help with the following?: yes: Hazards in your house that might hurt you? and yes: Keeping track of your medications? How often do you have trouble taking medicines the way you have been told to take them?: I always take medicine as prescribed How confident are you that you can control & manage most of your health problems?: very confident What is your race?: Other Mini Mental State Exam (MMSE) Orientation What is the (year) (season) (date) (day) (month)?: year, season, date, day and month Where are we (state) (county) (town or city) (hospital) (floor)?: state, county, town or city, hospital/clinic and floor Score Score: 10 Activity of Daily Living Bathing - sponge bath, tub bath or shower: receives no assistance (gets in/out by self, if usual bathing means Dressing - getting clothes from closets & drawers, including inner/outer garments & fasteners.: gets clothes & gets completely dressed without help Toileting - going to the 'toilet room' for urine/bowel elimination & cleaning self/arranging clothes: goes to toilet room, cleans self, arranges clothes without help Transfer: moves in & out of bed and chair without help (may use support object) Continence: controls urination/bowel movements completely by self Feeding: feeds self without help Total Score: 0 Information obtained from: patient Using telephone: independent Traveling: independent Shopping: independent Preparing meals: independent Housework: independent Taking medicine: independent Managing money: independent PHQ-9 Over the last 2 weeks, how often have you been bothered by any of the following problems? 1. Little interest or pleasure in doing things: not at all 2. Feeling down, depressed, or hopeless: not at all 3. Trouble falling or staying asleep, or sleeping too much: not at all 4. Feeling tired or having little energy: not at all 5. Poor appetite or overeating: not at all 6. Feeling bad about yourself - or that you are a failure or have let yourself or your family down: not at all 7. Trouble concentrating on things, such as reading the newspaper or watching television: not at all 8. Moving or speaking so slowly that other people could have noticed. Or the opposite - being so fidgety or restless that you have been moving around a lot more than usual: not at all 9. Thoughts that you would be better off or of hurting yourself in some way: not at all Total score: 0 Depression Screening Interpretation: Negative Depression Screening Done: Yes 31299 - PHQ-9 Billing: Yes Source: Developed by Drs. Felipe Dumont, Sigrid Call, Charles Nye and colleagues, with an educational sabina from [employer]. Physical Exam Vital Signs: Last Vital Signs Pulse 85 02/26/25 08:26 Resp 16 02/26/25 08:26 BP 138/78 02/26/25 08:26 Pulse Ox 95 02/26/25 08:26 Oxygen Delivery Method Room Air 02/26/25 08:26 BMI result Body Mass Index 33.1 Assessment & Plan Assessment & Plan (1) Medicare annual wellness visit, subsequent: Code(s): Z00.00 - Encounter for general adult medical examination without abnormal findings (2) Diabetes 1.5, managed as type 2: Code(s): E13.9 - Other specified diabetes mellitus without complications (3) Hypertension, essential: Code(s): I10 - Essential (primary) hypertension (4) Colon cancer screening: Code(s): Z12.11 - Encounter for screening for malignant neoplasm of colon (5) Lipid disorder: Code(s): E78.9 - Disorder of lipoprotein metabolism, unspecified (6) Obesity due to excess calories: Code(s): E66.09 - Other obesity due to excess calories Qualifiers: Body mass index: BMI 31.0-31.9 Obesity classification: adult class 1 (BMI 30 - 34.9) Serious obesity comorbidity presence: with serious comorbidity Qualified Code(s): E66.09 - Other obesity due to excess calories; Z68.31 - Body mass index [BMI] 31.0-31.9, adult Plan Diabetes: - The patient reports not having used test strips recently as prescriptions were rejected at the pharmacy. - The patient mentions interest in medication for weight loss and blood sugar co ntrol. - Reports challenges with blood sugar monitoring due to a lapse in attending regular appointments. Weight Gain: - The patient acknowledges a weight gain of 7 pounds over the past year. - The patient attributes decreased physical activity due to plantar fasciitis. - Mentions desire to discuss medications such as Wegovy for assistance with weight management. Medical History: - Diabetes Mellitus - Hypertension - Hyperlipidemia - Obesity - non compliance with regular f.u apt Medications: - Glipizide 10 mg twice daily for diabetes thought currently taking one tab in am and half in pm - Lisinopril 30 mg for hypertension - Rosuvastatin 5 mg for hyperlipidemia - Estrogen patch twice a week for menopausal symptoms thru Obgyn Social History: - Reports decreased physical activity due to plantar fasciitis, resulting in weight gain right foot - Mentions performing at-home exercises like those using a [employer] Diagnostic Results: - Labs: Prior Hemoglobin A1c was 6.8% in January of the previous year Problem List - Diabetes Mellitus - Hypertension - Hyperlipidemia - Recent Weight Gain - has not been seen in over one year Patient Instructions - Schedule and attend laboratory tests tomorrow for fasting labs. - Await scheduling call for mammogram and colonoscopy. - Monitor weight through increased physical activity as tolerated. - Continue current medication regimen. - Return for follow-up after completing laboratory work starting semaglutide injections Orders: Orders Hemoglobin A1c Today E13.9 - Other specified diabetes mellitus without complications, E66.09 - Other obesity due to excess calories, E78.9 - Disorder of lipoprotein metabolism, unspecified, I10 - Essential (primary) hypertension, Z68.31 - Body mass index [BMI] 31.0-31.9, adult Lipase Today E66.09 - Other obesity due to excess calories, Z68.31 - Body mass index [BMI] 31.0-31.9, adult MM tomosynthesis screening BI Today Z12.31 - Encounter for screening mammogram for malignant neoplasm of breast Complete Blood Count Auto Diff Today E13.9 - Other specified diabetes mellitus without complications, E66.09 - Other obesity due to excess calories, E78.9 - Disorder of lipoprotein metabolism, unspecified, I10 - Essential (primary) hypertension, Z68.31 - Body mass index [BMI] 31.0-31.9, adult Comprehensive [place]. Panel Fast Today E13.9 - Other specified diabetes mellitus without complications, E66.09 - Other obesity due to excess calories, E78.9 - Disorder of lipoprotein metabolism, unspecified, I10 - Essential (primary) hypertension, Z68.31 - Body mass index [BMI] 31.0-31.9, adult Lipid Panel Today E13.9 - Other specified diabetes mellitus without complications, E66.09 - Other obesity due to excess calories, E78.9 - Disorder of lipoprotein metabolism, unspecified, I10 - Essential (primary) hypertension, Z68.31 - Body mass index [BMI] 31.0-31.9, adult Vitamin D 25-OH (D2 and D3) Today E13.9 - Other specified diabetes mellitus w ithout complications, E66.09 - Other obesity due to excess calories, E78.9 - Disorder of lipoprotein metabolism, unspecified, I10 - Essential (primary) hypertension, Z68.31 - Body mass index [BMI] 31.0-31.9, adult TSH reflex Free T4 Today E13.9 - Other specified diabetes mellitus without complications, E66.09 - Other obesity due to excess calories, E78.9 - Disorder of lipoprotein metabolism, unspecified, I10 - Essential (primary) hypertension, Z68.31 - Body mass index [BMI] 31.0-31.9, adult Microalbumin, Random (w Creat) Today E13.9 - Other specified diabetes mellitus without complications, E66.09 - Other obesity due to excess calories, E78.9 - Disorder of lipoprotein metabolism, unspecified, I10 - Essential (primary) hypertension, Z68.31 - Body mass index [BMI] 31.0-31.9, adult Amylase Today E66.09 - Other obesity due to excess calories, Z68.31 - Body mass index [BMI] 31.0-31.9, adult Referrals Gastroenterology Referral Z12.11 - Encounter for screening for malignant neoplasm of colon Quality Reporting (2020) Depression/Bipolar (159/160/161/177) PHQ-9: Total score: 0 Coding Level of Care Code Medicare Subsequent (G0439) Est Pt Level 4 (29819) Diagnoses Medicare annual wellness visit, subsequent Z00.00 Diabetes 1.5, managed as type 2 E13.9 Hypertension, essential I10 Colon cancer screening Z12.11 Lipid disorder E78.9 Class 1 obesity due to excess calories with serious comorbidity and body mass index (BMI) of 31.0 to 31.9 in adult E66.09; Z68.31 Body mass index: BMI 31.0-31.9 Obesity classification: adult class 1 (BMI 30 - 34.9) Serious obesity comorbidity presence: with serious comorbidity CPT Codes Advance Care Planning - Time spent: 1-15 minutes, not on file ([id number]) Additional Codes PHQ-9 - 07693 - PHQ-9 Billing: Yes ([id number]) Advance Care Planning Advance Care Planning discussion: Completed/Scanned Forms completed: MOLST Time spent: 1-15 minutes, not on file
== END 2025-02-26 09:08 | disposition home or self-care (01) ==
LOC: HO.HMCC 08:22
PROVIDERS: PCP Internal Medicine; Visit Provider Internal Medicine
DX: Z00.00 Encounter for general adult medical examination without abnormal findings (principal); E13.9 Other specified diabetes mellitus without complications; I10 Essential (primary) hypertension; E66.09 Other obesity due to excess calories; Z68.31 Body mass index [BMI] 31.0-31.9, adult; E78.9 Disorder of lipoprotein metabolism, unspecified; Z12.11 Encounter for screening for malignant neoplasm of colon

== ENCOUNTER → 2025-02-26 08:21 | Outpatient (BNVA) | payer MEDICARE, SELFPAY | PROVIDERS: PCP Internal Medicine; Visit Provider Internal Medicine | DX: Z00.00 Encounter for general adult medical examination without abnormal findings (principal); I10 Essential (primary) hypertension; E66.9 Obesity, unspecified; E78.5 Hyperlipidemia, unspecified; E13.9 Other specified diabetes mellitus without complications; E66.09 Other obesity due to excess calories; E66.811 Obesity, class 1; Z68.31 Body mass index [BMI] 31.0-31.9, adult; Z68.33 Body mass index [BMI] 33.0-33.9, adult | CPT/HCPCS: 96127; 99212 ==

== ENCOUNTER 2025-03-01 06:32 | Outpatient (REF) | payer MEDICARE, SELFPAY ==
--- OUTSIDE RECORDS SUMMARY | 2024-11-13 04:40 | XMS_ITS ---
Author Organization [facility] Address [address] [place] [address] Care Team Providers Care Outlet Manager Name Role Phone LEOLA NABEELAugusto Primary Care Provider Nicci Maldonado Unavailable [phone] Allergies Allergen (clinical drug ingredient) Drug/Non Drug [...] Nonsmoker Encounters Encounter Location Date Provider Diagnosis [facility] [address] [place] [address] 11/13/2024 Nicci Field Plan Of Treatment Next Appt Details Provider Name:Nicci guillen, 05/07/2025 09:40:00 AM, [address], [address], [place], [address], Progress Notes * MIRIAM MCMILLAN:[birth year] (65 yo F)Acc No.[id number]:11/13/2024 PROGRESS NOTES Patient: BETTY GOMEZ Appointment Provider: Augusto Field M.D. :1960 A ge:64 Y S ex:Female Date:11/13/2024 Address:[address] [place], [place] [address] Pcp:KUNAL BHAGAT Subjective: * Chief Complaints: * 1 . HR MEDICARE PE (YELLOW FORM DONE). * Medical History: O ther endometriosis, Right lower quadrant pain, Abdominal pain, Other specified diabetes mellitus without complications, Essential (primary) hypertension, Personal history of cervical dysplasia, Hormone replacement therapy (postmenopausal), Pelvic Pain, Type 2 diabetes mellitus without complications. 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 S exual activity n ot currently sexually active. L ast Pap Smear: 1 09/06/20 NIL, NEG HPV, 12/27/2016 NIL, NEG HRHPV. M ammogram: < 50% density (Last Mammo in [employer] [facility]), 08/25/20 < 50% density, 05/2016 JOEY [place], normal, 05/23/15 < 25% glandular, 2011. A [...] Electronic signature of Madisyn Field MD on 03/01/2025 at 06:34 AM EDT Sign off status: Pending * Appointment Provider: Augusto Field M.D. Date: 0 11/13/2024 Generated for Patricia callaway/Kinjal/Aiden on: 0 03/01/2025 06:34 AM EDT
--- OUTSIDE RECORDS SUMMARY | 2025-03-01 06:34 | XMS_ITS | Patient Health Record ---
Author Organization [facility] Address [address] [place] [address] Care Team Providers Care Carpet Binder Name Role Phone Felipe Brown Unavailable [phone] Reason For Referral No Information Plan Of Treatment No Information
[2025-03-01 10:08] LABS: MANUAL DIFF FLAG NO
[2025-03-01 10:28] LABS: Hematocrit 41.3 % (37.0-47.0); Hemoglobin 13.6 g/dl (12.0-16.0); Imm Gran Abs Auto 0.02 X10*3/uL (0.00-0.03); Imm Gran Pct Auto 0.3 % (0.0-0.4); Lymphocytes Absolute Auto 3.2 X10*3/uL (1.2-4.9); Mean Corpuscular HGB Conc 32.9 g/dl (31.0-35.0); Mean Corpuscular Hemoglobin 29.6 pg (27.0-33.0); Mean Corpuscular Volume 89.8 fL (80.0-98.0); NRBC Abs Auto 0.000 X10*3/uL (0.0-0.012); NRBC Pct Auto 0.0 /100WBC (0.0-0.2); Platelet Count 258 X10*3/uL (160-400); Red Blood Count 4.60 X10*6/uL (4.20-5.50); White Blood Count 7.7 X10*3/uL (4.8-10.8)
[2025-03-01 10:50] LABS: Alanine Aminotransferase 36 U/L (0-31); Albumin Level 4.1 g/dL (3.5-5.0); Alkaline Phosphatase 68 U/L (39-117); Amylase 84 U/L (28-100); Anion Gap 14 (12-20); Aspartate Amino Transferase 32 U/L (5-31); Blood Urea Nitrogen 14 mg/dL (9-16); Calcium 9.1 mg/dL (8.4-10.2); Carbon Dioxide 26 mmol/L (22-29); Chloride 103 mmol/L (96-108); Cholesterol 195 mg/dL (<200); Estimated Glomerular Filt Rate > 60; HDL Cholesterol 49 mg/dL (>40); Lipase 51 U/L (8-78); Potassium 4.3 mmol/L (3.3-5.1); Sodium 139 mmol/L (135-145); Total Protein 7.0 g/dL (6.5-8.0); Triglycerides 235 mg/dL (<150)
[2025-03-01 11:01] LABS: Hemoglobin A1C 358.6062 umol/L; Total Hemoglobin (HGBA1C) 5430.9565 umol/L
[2025-03-06 16:18] LABS: Vitamin D 25-OH, D2 <4 ng/mL; Vitamin D 25-OH, D3 52 ng/mL; Vitamin D 25-OH, Total 52 ng/mL (30-100)
== END 2025-03-01 06:33 | disposition home or self-care (01) ==
LOC: HO.HMGCLDS 06:32
PROVIDERS: PCP Internal Medicine; Visit Provider Internal Medicine
DX: I10 Essential (primary) hypertension (principal); E78.9 Disorder of lipoprotein metabolism, unspecified; E13.9 Other specified diabetes mellitus without complications; E66.09 Other obesity due to excess calories; Z68.31 Body mass index [BMI] 31.0-31.9, adult
CPT/HCPCS: 36415; 80053; 80061; 82043; 82150; 82306; 82570; 83036; 83690; 84443; 85025

== ENCOUNTER 2025-03-15 09:51 | Outpatient (AMB) | payer MEDICARE, MEDICAID, SELFPAY ==
--- OUTSIDE RECORDS SUMMARY | 2023-10-11 05:40 | XMS_ITS ---
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 :1960 A ge:63 Y S ex:Female Date:10/11/2023 Address:[address] [place] [address] [address] [place], , [id number] Pcp:KUNAL BHAGAT Subjective: * Chief Complaints: * 1 . 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 * Medical History: Objective: * Vitals: Assessment: Plan: * Treatment: * Images: Billing Information: * Visit Code: * Procedure Codes: * Electronic signature of Madisyn Field MD on 03/15/2025 at 10:39 AM EDT Sign off status: Pending * Appointment Provider: Augusto Field M.D. Date: 0 10/11/2023 Generated for Patricia callaway/Kinjal/Yahairaitting on: 0 03/15/2025 10:39 AM EDT
--- OUTSIDE RECORDS SUMMARY | 2024-11-13 04:40 | XMS_ITS ---
Author Organization [facility] Address [address] [place] [address] Care Team Providers Care Slurry Worker Name Role Phone LEOLA NABEELAugusto Primary Care Provider Nicci Maldonado Unavailable [phone] Allergies Allergen (clinical drug ingredient) Drug/Non Drug [...] Encounter Location Date Provider Diagnosis [facility] [address] [facility] [address] [place] [address] 11/13/2024 Nicci Field Plan Of Treatment Next Appt Details Provider Name:Nicci guillen, 05/07/2025 09:40:00 AM, [address], [address], [place], [address], Progress Notes * MIRIAM MCMILLAN:[birth year] (65 yo F)Acc No.[id number]:11/13/2024 PROGRESS NOTES Patient: BETTY GOMEZ Appointment Provider: Augusto Field M.D. :1960 A ge:64 Y S ex:Female Date:11/13/2024 Address:[address] [place], [place] [id number] Pcp:KUNAL BHAGAT Subjective: * Chief Complaints: * 1 . HR MEDICARE PE (YELLOW FORM DONE). * Medical History: O ther endometriosis, Right lower quadrant pain, Abdominal pain, Other specified diabetes mellitus without complications, Essential (primary) hypertension, Personal history of cervical dysplasia, Hormone replacement therapy (postmenopausal), Pelvic Pain, Type 2 diabetes mellitus without complications. 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 S exual activity n ot currently sexually active. L ast Pap Smear: 1 09/06/20 NIL, NEG HPV, 12/27/2016 NIL, NEG HRHPV. M ammogram: < 50% density (Last Mammo in [facility]), 08/25/20 < 50% density, 05/2016 [facility] [place], normal, 05/23/15 < 25% glandular, 2011. A [...] Field M.D. Date: 0 11/13/2024 Generated for Ptaricia callaway/Kinjal/Aiden on: 0 03/15/2025 10:39 AM EDT
--- NOTE | 2025-03-15 09:58 | A.OFFVIS_ITS ---
Vital Signs 03/15/25 10:03 Height 5 ft 3 in Weight 185 lb BMI 32.8 BP 146/65 H Blood Pressure Location Lt brachial Position Sitting Pulse 77 Pulse Oximetry (%) 96 Oxygen Delivery Method Room Air Intake Visit Reasons: Pre Colonoscopy Intake Note: Patient new consult for 3nd pre Colonoscopy screening. Last Colonoscopy was with Dr. Laughlin. Patient denies any GI issues. Cobbler Apprentice Required: No Accompanied by: Self / Same As Patient Allergies Penicillins Allergy (Mild, Verified 03/15/25 09:54) RASH Medication List - Last Reconciled 03/15/25 by Yu Koo CNP blood sugar diagnostic (FreeStyle Lite Strips) Use to check fasting blood sugar and random blood sugar daily blood-glucose meter (FreeStyle Lite Meter kit) Use to check fasting blood sugar and a random blood sugar during the day. cholecalciferol (vitamin D3) 10 mcg PO DAILY estradiol 1 patch topical 2XW glipizide 10 mg PO BID 90 days lancets (FreeStyle Lancets) Use to check fasting blood sugar and random blood sugar daily lisinopril 30 mg PO DAILY 30 days rosuvastatin 5 mg PO DAILY 90 days semaglutide 0.25 mg (0.368 mL) subcut QWEEK 30 days HPI HPI Pre Colonoscopy: Details: Patient is a 65-year-old female with PMH of hypertension, hyperlipidemia, diabetes and GERD. Kelli presents for a colonoscopy screeing following prior findings of polyps during her past procedures, one of which was benign, and the other precancerous. Her last colonoscopy, performed in August 2016, also included concurrent upper endoscopy that revealed superficial gastritis and evidence of bleeding. An earlier colonoscopy in 2008 was normal, though there were findings of inflammation in the esophagus and stomach on concurrent upper endoscopy. She reports no current gastrointestinal symptoms such as heartburn, nausea, vomiting, or dysphagia. Bowel movements occur daily or twice daily, soft and formed, with no constipation, diarrhea, or blood. Occasional lower right abdominal pain was noted but has been previously investigated as likely related to her history of endometriosis; both ultrasound and evaluation found no bowel- related pathology. Of note, there is no reported unexplained weight loss, blood in stools, or systemic symptoms. She has recently started Ozempic and is aware of its potential constipating effect. History includes fatty liver documented in prior imaging, elevated liver enzymes, and metabolic syndrome features including obesity, diabetes mellitus, and hyperlipidemia. Patient denies: fever/chills, n/v, appetite changes, pyrosis, regurgitation,dysphasia, unintentional wt loss or melena/hematochezia. Social hx: -few X/year ETOH use -denies recreational drug use -former smoker, cessation 40+ years ago - family hx as below -denies personal hx of CA -denies significant cardiopulmonary history -tolerated anesthesia in the past without difficulty. [facility] Medical History (Updated 03/15/25 @ 10:50 by Yu Koo CNP) Gastritis Elevated LFTs Lipid disorder Chronic GERD Fatty liver Diabetes 1.5, managed as type 2 Hypertension, essential Surgical History H/O colonoscopy History of esophagogastroduodenoscopy (EGD) History of microdiscectomy History of hysterectomy History of appendectomy History of tonsillectomy History of section Family History Father CVD (cardiovascular disease) History of heart attack Mother Mouth cancer Diabetes mellitus History of open heart surgery Brother Heart problem Brother History of open heart surgery Brother History of open heart surgery Daughter No problems noted. Son No problems noted. Son No problems noted. Sister No problems noted. Sister No problems noted. Sister No problems noted. Sister No problems noted. Social History Housing: House Alcohol intake: current Alcohol intake frequency: a few times a month Patient Tobacco Use Status: Former Tobacco user Years Smoked: 5 yrs e-Cigarette/Vaping Use: Never Used Current occupational status: unemployed Cognitive needs: No Hearing needs: No Vision needs: Yes Review of Systems Const Reports as per HPI ENT Reports as per HPI Card Reports as per HPI Resp Reports as per HPI GI Reports as per HPI Reports as per HPI Physical Exam Vital Signs: Last Vital Signs Pulse 77 03/15/25 10:03 BP 146/65 H 03/15/25 10:03 Pulse Ox 96 03/15/25 10:03 Oxygen Delivery Method Room Air 03/15/25 10:03 BMI result Body Mass Index 32.8 Const General: healthy appearing, no acute distress and well developed Nutritional Appearance: average body habitus Orientation/consciousness: patient oriented x3 HEENT Head: Yes normal to inspection, Yes normocephalic and Yes atraumatic Face and sinus: Yes normal facial exam Eyes General: appearance normal, both eyes and all related structures Neck Neck: Yes normal visual inspection Resp Effort & Inspection: normal respiratory effort, able to speak in complete sentences, no tracheal deviation and symmetric chest movement Auscultation: clear to auscultation bilaterally Cardio Jugular venous distension: no JVD Rate: regular rate Rhythm: regular rhythm Heart sounds: S1 normal heart sound present, S2 normal heart sound present, no gallops and no murmurs GI Inspection: Yes normal to inspection, No distended and Yes obesity Palpation (GI): Soft to palpation, not firm, nontender and No hepatosplenomegaly present Auscultation: normal bowel sounds Neuro General: patient oriented x3 Gait exam (Neuro): Normal gait present Psych Appearance: grossly normal Mental Status: mental status grossly normal Speech and movement: Normal speech and movement present Affect: normal affect Attitude: cooperative Thought process: Normal thought process present Thought content: Normal thought content present Insight: Good insight present (Psych) Judgement: Good judgement present (Psych) Results Reviewed Results Reviewed: Date of Service: 07/20/21 Procedure(s): US abdomen complete Accession Number(s): [id number] cc: Isiah Oliva MD~ EXAMINATION: US ABDOMEN COMPLETE CLINICAL INFORMATION: Right upper quadrant pain. COMPARISON: CT abdomen and pelvis without contrast dated 04/21/2018. Ultrasound abdomen complete dated 04/01/2016. TECHNIQUE: Real-time imaging of the abdominal viscera. FINDINGS: PANCREAS: Normal. ABDOMINAL AORTA: The proximal, mid, and distal segments are normal in caliber. INFERIOR VENA CAVA: Visualized portions are normal. LIVER: Liver is slightly enlarged. Liver echotexture is increased probably representing fatty infiltration. There is a hypoechoic area adjacent to the gallbladder, characteristic location of focal fatty sparing. No other focal hepatic lesion. There is no intrahepatic biliary duct dilatation seen. GALLBLADDER: Normal. COMMON BILE DUCT: Normal in caliber measuring 0.4 cm in diameter. RIGHT KIDNEY: Normal. No hydronephrosis. No renal calculi or focal parenchymal lesions. The kidney measures 11.4 cm in maximum dimension. LEFT KIDNEY: Normal. No hydronephrosis. No renal calculi or focal parenchymal lesions. The kidney measures 11.5 cm in maximum dimension. SPLEEN: Normal. The spleen measures 10 cm in maximum dimension. FREE FLUID: None. US/US abdomen complete IMPRESSION: Enlarged echogenic liver probably representing fatty infiltration. Date of Service: 07/20/21 Procedure(s): US abdomen complete Accession Number(s): [id number] cc: Isiah Oliva MD~ EXAMINATION: US ABDOMEN COMPLETE CLINICAL INFORMATION: Right upper quadrant pain. COMPARISON: CT abdomen and pelvis without contrast dated 04/21/2018. Ultrasound abdomen complete dated 04/01/2016. TECHNIQUE: Real-time imaging of the abdominal viscera. FINDINGS: PANCREAS: Normal. ABDOMINAL AORTA: The proximal, mid, and distal segments are normal in caliber. INFERIOR VENA CAVA: Visualized portions are normal. LIVER: Liver is slightly enlarged. Liver echotexture is increased probably representing fatty infiltration. There is a hypoechoic area adjacent to the gallbladder, characteristic location of focal fatty sparing. No other focal hepatic lesion. There is no intrahepatic biliary duct dilatation seen. GALLBLADDER: Normal. COMMON BILE DUCT: Normal in caliber measuring 0.4 cm in diameter. RIGHT KIDNEY: Normal. No hydronephrosis. No renal calculi or focal parenchymal lesions. The kidney measures 11.4 cm in maximum dimension. LEFT KIDNEY: Normal. No hydronephrosis. No renal calculi or focal parenchymal lesions. The kidney measures 11.5 cm in maximum dimension. SPLEEN: Normal. The spleen measures 10 cm in maximum dimension. FREE FLUID: None. US/US abdomen complete IMPRESSION: Enlarged echogenic liver probably representing fatty infiltration. Assessment & Plan Assessment & Plan (1) Colon cancer screening: Comment: 09/02/2016 colonoscopy complete with excellent prep-serrated adenoma (ascending), hyperplastic polyp. 07/01/09 colonoscopy complete, suspect adequate prep-normal Code(s): Z12.11 - Encounter for screening for malignant neoplasm of colon Category: Medical Plan: Due for polyp surveillance colonoscopy. No alarm features. Medications: -prescriptions for laxative tablets and MiraLax sent to pharmacy; instructions for Gatorade purchase and clear liquid diet given. -understands diabetes medications will need to be held days prior to procedure. Nurse to review med holds per protocol. Patient educated on scheduling process, procedure preparation, including avoiding certain foods and ensuring clear liquid intake Advised on necessity for ride post-procedure due to sedation. (2) Gastritis: Comment: 09/02/2016 EGD superficial/hemorrhagic gastritis, 07/01/09 EGD -distal esophagitis, superficial gastritis Code(s): K29.70 - Gastritis, unspecified, without bleeding Category: Medical Qualifiers: Gastritis type: superficial Chronicity: chronic Gastritis bleeding: with bleeding Qualified Code(s): K29.31 - Chronic superficial gastritis with bl eeding Plan: Prior EGD showed superficial gastritis; with bleeding and esophagitis; currently asymptomatic. Additional Testing: Repeat EGD discussed and offered due to history, but patient declined as asymptomatic. Medication Management: None indicated at this time. Lifestyle Recommendations: Continue current diet and avoid known GI irritants. Follow-Up: Revisit EGD if symptoms develop (heartburn, dysphagia, upper GI bleeding). (3) Elevated LFTs: Code(s): R79.89 - Other specified abnormal findings of blood chemistry Category: Medical Plan: Previous imaging (CT/ultrasound, 2021) suggestive of fatty liver; metabolic syndrome risk factors present. Elevated liver enzymes need exclusion of secondary causes. Additional Testing: Blood work ordered to rule out hepatitis and autoimmune etiologies. Medication Management: No changes recommended at this time. Lifestyle Recommendations: Continue healthy eating (whole foods/fiber) and regular physical exercise to aid weight loss and metabolic control. Follow-Up: Results to be reviewed; no news is good news, but patient encouraged to check the portal or reach out for concerns. Plan Follow-up after colonoscopy or sooner if needed Time: I spent a total of 30 minutes on the date of encounter which includes: Preparing to see the patient (reviewed previous documentation, test results and medical history) Performing a medically appropriate exam and/or evaluation Ordering medications, tests, and procedures Documenting clinical information in the health record Orders: Orders Hepatitis A,B,C Profile Today R79.89 - Other specified abnormal findings of blood chemistry Hepatitis A IgG Today R79.89 - Other specified abnormal findings of blood chemistry Mitochondrial Antibody Today R79.89 - Other specified abnormal findings of blood chemistry RAMANA Reflex Titer and Pattern Today R79.89 - Other specified abnormal findings of blood chemistry Ferritin Today R7. - Other specified abnormal findings of blood chemistry Lipase Today R7. - Other specified abnormal findings of blood chemistry HIV Ab/Ag Today R7. - Other specified abnormal findings of blood chemistry Smooth Muscle Antibody Today R7. - Other specified abnormal findings of blood chemistry Transglutaminase IgA Today R7. - Other specified abnormal findings of blood chemistry Prothrombin Time INR Today R7. - Other specified abnormal findings of blood chemistry Medications: New bisacodyl (Dulcolax (bisacodyl)) Take four tablets per colonoscopy instructions 20 mg (4 x 5 mg) PO ONCE 4 tabs 0RF 1 day polyethylene glycol 3350 (Miralax) per colonoscopy prep instructions 238 grams PO ONCE 238 grams 0RF Coding Level of Care Code New Pt New Pt Level 3 (37799) Patient Type New Diagnoses Colon cancer screening Z12.11 Chronic superficial gastritis with bleeding K29.31 Gastritis type: superficial Chronicity: chronic Gastritis bleeding: with bleeding Elevated LFTs R79.
[2025-03-15 10:03] VITALS: BP 146/65; PULSE 77; O2SAT 96; BMI 32.8
--- OUTSIDE RECORDS SUMMARY | 2025-03-15 10:39 | XMS_ITS | Patient Health Record ---
[facility] Address [address] [place] [id number] Care Team Providers Care Bioinformatics Developer Name Role Phone Felipe Brown Unavailable [phone] Reason For Referral No Information Plan Of Treatment No Information
--- OUTSIDE RECORDS SUMMARY | 2025-03-15 10:40 | XMS_ITS | Patient Health Record ---
Author Organization [facility] Address [address] [place] [address] Care Team Providers Care Industrial Radiographer Name Role Phone KUNAL BHAGAT Primary Care Provider Nicci Maldonado Unavailable [phone] Allergies Allergen (clinical drug ingredient) Drug/Non Drug Allergy documented on EMR Reaction Allergy Type Onset Date Status PENICILLIN Skin Rash Drug Allergy Active Reason For Referral No Information Medications Medication SIG (Take, Route, Frequency, Duration) Notes Start Date End Date Status Vitamin D3 25 MCG (1000 UT) 1 capsule Orally Once a day; Duration: 30 day(s) Active Estradiol 0.0375 MG/24HR APPLY 1 PATCH T OPICALLY TO CLEAN, DRY SKIN ONE DAY A WEEK; Duration: 84 Active Lisinopril 5 MG 1 tablet Orally Once a day; Duration: 30 day(s) Active Estradiol 0.0375 MG/24HR APPLY 1 PATCH T OPICALLY TO THE SKIN 2 TIMES A WEEK; Duration: 90 Active glipiZIDE 5 MG Oral; Duration: 90 Active Social History Tobacco Use: Social History Observation [...] (Standard) Question Answer Notes Tobacco use: Nonsmoker Problems Problem Type SNOMED Code ICD Code Onset Dates Problem Status W/U Status Risk Notes Problem Type II diabetes mellitus without complication (467322237) Type 2 diabetes mellitus without complications (E11.9) Active confirmed Problem History of dysplasia of cervix (579255550) Personal history of cervical dysplasia (Z87.410) Active confirmed Problem Type II diabetes mellitus without complication (404377922) Diabetes mellitus without mention of complication, type II or unspecified type, not stated as uncontrolled (250.00) Active confirmed Major Problem Benign essential hypertension (3957648) Essential hypertension, benign (401.1) Active confirmed Major Problem Endometriosis (516970979) Endometriosis of other specified sites (617.8) Active confirmed Diag Problem Endometriosis (200661654) Endometriosis, site unspecified (617.9) Active confirmed Major Problem Abdominal pain (51724672) Abdominal pain (789.0) Active confirmed Major Problem Right lower quadrant pain (775761299) Abdominal pain, right lower quadrant (789.03) Active confirmed Diag Problem Gynecological examination normal (080449543333939) Routine gynecological examination (V72.31) Active confirmed Major Problem Screening for malignant neoplasm of colon (885139341) Special screening for malignant neoplasms, colon (V76.51) Active confirmed Major Encounters Encounter Location Date Provider Diagnosis [address] [place] [address] 11/13/2024 Nicci Field Plan Of Treatment Pending Test Test Name Order Date MAMMOGRAM, SCREENING 03/15/2018 MAMMOGRAM, SCREENING 06/28/2019 MAMMOGRAM, SCREENING 07/06/2021 MAMMOGRAM, SCREENING 10/05/2022 MAMMOGRAM, SCREENING 11/08/2023 Urinalysis 07/06/2021 Urinalysis 04/19/2019 Urinalysis 09/30/2017 Ultrasound : Retroperitoneal 09/30/2017 Glucose, random 10/05/2022 COMPLETE URINALYSIS 10/03/2017 HERPES SIMPLEX 1 IGG AB 05/17/2017 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/17/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 IGG AB 05/17/2017 THIN PREP,HPV,CORA IF HPV+ (>29YR)(SCRN) 12/28/2016 URINE CULTURE 10/03/2017 BONE DENSITY 10/05/2022 MM Digital Mammo Screening 12/28/2016 MM Digital Mammo Screening 03/15/2018 MM Digital Mammo Screening 11/08/2023 MM Digital Mammo Screening 10/05/2022 MM Digital Mammo Screening 06/28/2019 MM Digital Mammo Screening 07/06/2021 COMPLETE URINALYSIS 09/30/2017 Next Appt Details Provider Name:Nicci guillen, 05/07/2025 09:40:00 AM, [address], [address], [place], [address], Insurance Providers Payer Name Payer Address Payer Phone Subscriber Number Group Number Insured Name Patient Relationship to Insured Coverage Start Date Coverage End Date MEDICARE [address] [place] [id number] [phone] [id number] BETTY MCMILLAN Self - patient is the insured 3 Medical (General) History Medical History History ICD Code Other endometriosis N80.8 Right lower quadrant pain R10.31 Abdominal pain 789.0 Other specified diabetes mellitus withou t complications E13.9 Essential (primary) hypertension I10 Personal history of cervical dysplasia Z 87.410 Hormone replacement therapy (postmenopau fidelina) Z79.890 Pelvic Pain R10.2 Type 2 diabetes mellitus without complic ations E11.9 Surgical History Surgery Date(Month/Year) Bilateral Tubal Ligation x 3 Colonoscopy Spinal Sugery SHORTY/BSO Hospitalization History Reason Date(Month/Year) See Surgical Hx
== END 2025-03-15 10:31 | disposition home or self-care (01) ==
LOC: HO.HGI 09:52
PROVIDERS: PCP Internal Medicine; Visit Provider Nurse Practitioner Family
DX: Z12.11 Encounter for screening for malignant neoplasm of colon (principal); Z86.0101 Personal history of adenomatous and serrated colon polyps; K29.31 Chronic superficial gastritis with bleeding; R74.01 Elevation of levels of liver transaminase levels
CPT/HCPCS: 99203

== ENCOUNTER → 2025-03-15 09:51 | Outpatient (BNVA) | payer MEDICARE, MEDICAID, SELFPAY | PROVIDERS: PCP Internal Medicine; Visit Provider Nurse Practitioner Family | DX: Z01.818 Encounter for other preprocedural examination (principal); K29.31 Chronic superficial gastritis with bleeding; K21.9 Gastro-esophageal reflux disease without esophagitis; R79.89 Other specified abnormal findings of blood chemistry; Z86.0100 Personal history of colon polyps, unspecified | CPT/HCPCS: 99202 ==

== ENCOUNTER 2025-04-16 12:54 | Outpatient (AMB) | payer MEDICARE, MEDICAID, SELFPAY ==
--- OUTSIDE RECORDS SUMMARY | 2024-11-13 04:40 | XMS_ITS ---
Author Organization [facility] Address [address] [place] [address] Care Team Providers Care Trigonometry Tutor Name Role Phone LEOLA NABEELAugusto Primary Care Provider Nicci Maldonado Unavailable [phone] Allergies Allergen (clinical drug ingredient) Drug/Non Drug [...] Nonsmoker Encounters Encounter Location Date Provider Diagnosis [facility] [address] [address] [place] [address] 11/13/2024 Nicci Field Plan Of Treatment Next Appt Details Provider Name:Nicci guillen, 05/07/2025 09:40:00 AM, [address], [address], [place], [address], Progress Notes * MIRIAM MCMILLAN:[birth year] (65 yo F)Acc No.[id number]:11/13/2024 PROGRESS NOTES Patient: BETTY GOMEZ Appointment Provider: Augusto Field M.D. :1960 A ge:64 Y S ex:Female Date:11/13/2024 Address:[address] [place], [place] [address] [facility] Pcp:KUNAL BHAGAT Subjective: * Chief Complaints: * 1 . HR MEDICARE PE (YELLOW FORM DONE). * Medical History: O ther endometriosis, Right lower quadrant pain, Abdominal pain, Other specified diabetes mellitus without complications, Essential (primary) hypertension, Personal history of cervical dysplasia, Hormone replacement therapy (postmenopausal), Pelvic Pain, Type 2 diabetes mellitus without complications. 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 S exual activity n ot currently sexually active. L ast Pap Smear: 1 09/06/20 NIL, NEG HPV, 12/27/2016 NIL, NEG HRHPV. M ammogram: < 50% density (Last Mammo in [employer] [facility]), 08/25/20 < 50% density, 05/2016 JOEY [place], normal, 05/23/15 < 25% glandular, 2011. A [...] Electronic signature of Madisyn Field MD on 04/16/2025 at 02:03 PM EDT Sign off status: Pending * Appointment Provider: Augusto Field M.D. Date: 0 11/13/2024 Generated for Patricia callaway/Kinjal/Aiden on: 0 04/16/2025 02:03 PM EDT
--- NOTE | 2025-04-16 13:00 | A.OFFPC_ITS ---
Vital Signs 04/16/25 13:01 Height 5 ft 3 in Weight 186 lb 6 oz BMI 33.0 BP 120/76 Blood Pressure Location Lt brachial Position Sitting Pulse 66 Pulse Source Pulse Oximeter Pulse Oximetry (%) 98 Intake Visit Reasons: med management/weight loss Allergies Penicillins Allergy (Mild, Verified 04/16/25 13:01) RASH Medication List - Last Reconciled 04/16/25 by Isiah Oliva MD blood sugar diagnostic (FreeStyle Lite Strips) Use to check fasting blood sugar and random blood sugar daily blood-glucose meter (FreeStyle Lite Meter kit) Use to check fasting blood sugar and a random blood sugar during the day. cholecalciferol (vitamin D3) 10 mcg PO DAILY estradiol 1 patch topical 2XW glipizide 10 mg PO BID 90 days lancets (FreeStyle Lancets) Use to check fasting blood sugar and random blood sugar daily lisinopril 30 mg PO DAILY 90 days rosuvastatin 5 mg PO DAILY 90 days semaglutide 0.25 mg (0.368 mL) subcut QWEEK 30 days Tobacco use date assessed: 04/16/25 Fall risk assessment: No Falls in past year Last assessed Fall Risk: 04/16/25 Dental Screening Dental Screen Date: 04/16/25 Did you have a dental visit in the last 12 months?: Yes Did you have a dental problem in the last 6 months where you did not have access to dental care?: No Was dental information given to patient?: Patient has dentist HPI med management/weight loss HPI Details History of Present Illness The patient is a 65-year-old female presenting with adjustment of semaglutide dosage for diabetes management, and obesity Diabetes Management: - The patient reported currently using s emaglutide with an initial dosage of .25 mg, managing her blood glucose levels with ranges between 97 to 112 mg/dL. - She experienced nausea during the firs t one to two days after initiation of the medication, which was alleviated using toshia chews. - The patient reported a recent weight l oss of a couple of pounds, with increased energy levels after starting the treatment. - There were no reported instances of lo w blood sugar symptomatic episodes, such as lightheadedness or jitteriness. - She also confirmed no abdominal pain o r cramping, though burping was noted occasionally. - The patient manages her condition with diet by incorporating more protein and exercises by walking. Social History: - Engages in walking as a form of exerci se. - The patient is managing her diet by in creasing protein intake. - Reports preparing and freezing homemad e meatballs for protein consumption. Problem List - Type 2 Diabetes Mellitus - obesity with BMI of 33.0 Plan 1. Type 2 Diabetes Mellitus - Initiate semaglutide at a maintained d ose of 0.5 mg for one month, then increase to 1 mg after the first month. - Refills will be provided to ensure con tinued availability of the medication. - The patient was advised to monitor blo od sugar closely and adjust glipizide dosage if experiencing symptoms of hypoglycemia, such as lightheadedness or jitteriness. - Encouraged monitoring of weight and di et, with confirmation of recent weight loss. Follow-up early June Review of Systems - General: No fever no chills - Neurological: No headaches no dizziness - Ear nose throat: No sore throat no hearing difficulty no ear pain - Cardiovascular: No syncope, no chest pain, no palpitations - Gastrointestinal: No nausea vomiting or diarrhea - Endocrine: No polyuria polydipsia no heat intolerance - Genitourinary: No dysuria , no blood in urine Physical Exam General: No acute distress HEENT: No acute findings Neck: Supple Respiratory system: Able to talk in full sentences, no audible wheeze Cardiovascular: S1-S2 regular in rate and rhythm Gastrointestinal: No pain, occasional burping Extremities: No new findings SHAKER WASHER: Alert awake oriented x3 motor intact Skin: Normal turgor PFSH Medical History Gastritis Elevated LFTs Lipid disorder Chronic GERD Fatty liver Diabetes 1.5, managed as type 2 Hypertension, essential Surgical History H/O colonoscopy History of esophagogastroduodenoscopy (EGD) History of microdiscectomy History of hysterectomy History of appendectomy History of tonsillectomy History of section Family History Father CVD (cardiovascular disease) History of heart attack Mother Mouth cancer Diabetes mellitus History of open heart surgery Brother Heart problem Brother History of open heart surgery Brother History of open heart surgery Daughter No problems noted. Son No problems noted. Son No problems noted. Sister No problems noted. Sister No problems noted. Sister No problems noted. Sister No problems noted. Social History Housing: House Alcohol intake: current Alcohol intake frequency: a few times a month Patient Tobacco Use Status: Former Tobacco user Years Smoked: 5 yrs e-Cigarette/Vaping Use: Never Used Current occupational status: unemployed Cognitive needs: No Hearing needs: No Vision needs: Yes Questionnaire PHQ-9 Over the last 2 weeks, how often have you been bothered by any of the following problems? 1. Little interest or pleasure in doing things: not at all 2. Feeling down, depressed, or hopeless: not at all 3. Trouble falling or staying asleep, or sleeping too much: not at all 4. Feeling tired or having little energy: not at all 5. Poor appetite or overeating: not at all 6. Feeling bad about yourself - or that you are a failure or have let yourself or your family down: not at all 7. Trouble concentrating on things, such as reading the newspaper or watching television: not at all 8. Moving or speaking so slowly that other people could have noticed. Or the opposite - being so fidgety or restless that you have been moving around a lot more than usual: not at all 9. Thoughts that you would be better off or of hurting yourself in some way: not at all Total score: 0 Depression Screening Interpretation: Negative Depression Screening Done: Yes 77923 - PHQ-9 Billing: Yes Source: Developed by Drs. Felipe Dumont, Sigrid Call, Charles Nye and colleagues, with an educational sabina from [employer]. Thrive Questionnaire Date Thrive assessed: 04/12/25 I am a: Patient What is your living situation today?: I choose not to answer this question Within the past 12 months, did the food you bought not last and you didn't have the money to get more?: I choose not to answer this question Within the past 12 months, did you worry whether your food would run out before you got money to buy more?: I choose not to answer this question Do you have trouble paying for medicines?: I choose not to answer this question Do you have trouble getting transportation to medical appointments?: I choose not to answer this question Do you have trouble paying your heating and electricity bill?: I choose not to answer this question Do you have trouble taking care of your child, family member or friend?: I choose not to answer this question Do you have trouble with day-to-day activities such as bathing, preparing meals, shopping, managing finances, etc.?: I choose not to answer this question Are you currently unemployed and looking for a job?: I choose not to answer this question Are you interested in more education?: I choose not to answer this question Please select the resources that you would like help with: None Currently or been in a relationship where the following occur: I choose not to answer THRIVE Score: 0 AUDIT C Alcohol Use Questionnaire (AUDIT-C) 1. How often do you have a drink containing alcohol?: Monthly or less 2. How many drinks containing alcohol do you have on a typical day when you are drinking?: 1 or 2 3. How often do you have six or more drinks on one occasion?: Never Total Score: 1 Score Reviewed/Action Taken: Yes MARBELLA-7 AMB Questionnaire MARBELLA-7 Date MARBELLA - 7 assessed: 04/16/25 Feeling nervous, anxious, or on edge: 0 = Not at all Not being able to stop or control worryin = Not at all Worrying too much about different things: 0 = Not at all Trouble relaxin = Not at all Being so restless that it is hard to sit still: 0 = Not at all Becoming easily annoyed or irritable: 0 = Not at all Feeling afraid as if something awful might happen: 0 = Not at all Total MARBELLA-7 score (0-4 normal; 5-9 mild; 10-14 moderate; 15-21 severe): 0 Source: Developed by Drs. Felipe Dumont, Sigrid Call, Charles Nye and colleagues, with an educational sabina from [employer]. MARBELLA-7 Assessment Billing MARBELLA-7 Assessment Tool: MARBELLA-7 Assessment 26699 Physical exam (Primary Care) Vital Signs: Last Vital Signs Pulse 66 04/16/25 13:01 BP 120/76 04/16/25 13:01 Pulse Ox 98 04/16/25 13:01 BMI result Body Mass Index 33.0 Tobacco/Smoking Status: Tobacco use Status Tobacco use date assessed 04/16/25 04/16/25 13:04 Patient Tobacco Use Status Former Tobacco user 04/16/25 13:04 e-Cigarette/Vaping Use Never Used 04/16/25 13:04 PHQ-9: PHQ-9 Score PHQ-9: Total score 0 04/16/25 13:19 Depression Screening Interpretation: Negative Thrive Assessment: Date of Thrive Assessment Date Thrive assessed 04/12/25 04/16/25 13:04 Currently or been in a relationship where the following occur: I choose not to answer Coding Level of Care Code Est Pt Level 3 (41193) Diagnoses Diabetes 1.5, managed as type 2 E13.9 Class 1 obesity due to excess calories with serious comorbidity and body mass index (BMI) of 31.0 to 31.9 in adult E66.09; Z68.31 Obesity classification: adult class 1 (BMI 30 - 34.9) Serious obesity comorbidity presence: with serious comorbidity Body mass index: BMI 31.0-31.9 Additional Codes MARBELLA-7 Assessment Billing - MARBELLA-7 Assessment Tool: MARBELLA-7 Assessment 08465 ([id number]) PHQ-9 - 79525 - PHQ-9 Billing: Yes ([id number]) Assessment & Plan Assessment & Plan (1) Diabetes 1.5, managed as type 2: Code(s): E13.9 - Other specified diabetes mellitus without complications Category: Medical (2) Obesity due to excess calories: Code(s): E66.09 - Other obesity due to excess calories Category: Medical Qualifiers: Obesity classification: adult class 1 (BMI 30 - 34.9) Serious obesity comorbidity presence: with serious comorbidity Body mass index: BMI 31.0-31.9 Qualified Code(s): E66.09 - Other obesity due to excess calories; Z68.31 - Body mass index [BMI] 31.0-31.9, adult Plan History of Present Illness The patient is a 65-year-old female presenting with adjustment of semaglutide dosage for diabetes management, and obesity Diabetes Management: - The patient reported currently using semaglutide with an initial dosage of .25 mg, managing her blood glucose levels with ranges between 97 to 112 mg/dL. - She experienced nausea during the first one to two days after initiation of the medication, which was alleviated using toshia chews. - The patient reported a recent weight loss of a couple of pounds, with increased energy levels after starting the treatment. - There were no reported instances of low blood sugar symptomatic episodes, such as lightheadedness or jitteriness. - She also confirmed no abdominal pain or cramping, though burping was noted occasionally. - The patient manages her condition with diet by incorporating more protein and exercises by walking. Social History: - Engages in walking as a form of exercise. - The patient is managing her diet by increasing protein intake. - Reports preparing and freezing homemade meatballs for protein consumption. Problem List - Type 2 Diabetes Mellitus - obesity with BMI of 33.0 Plan 1. Type 2 Diabetes Mellitus - Initiate semaglutide at a maintained dose of 0.5 mg for one month, then increase to 1 mg after the first month. - Refills will be provided to ensure continued availability of the medication. - The patient was advised to monitor blood sugar closely and adjust glipizide dosage if experiencing symptoms of hypoglycemia, such as lightheadedness or jitteriness. - Encouraged monitoring of weight and diet, with confirmation of recent weight loss. Follow-up early June Medications: Changed From semaglutide for 4 weeks 0.25 mg (0.368 mL) subcut QWEEK 30 days 2 mL 0RF E13.9 - Other specified diabetes mellitus without complications, E66.09 - Other obesity due to excess calories, E78.9 - Disorder of lipoprotein metabolism, unspecified, I10 - Essential (primary) hypertension, K76.0 - Fatty (change of) liver, not elsewhere classified, Z68.31 - Body mass index [BMI] 31.0-31.9, adult To semaglutide for 4 weeks 0.5 mg (0.375 mL) subcut QWEEK 1.875 mL 1RF 30 days E13.9 - Other specified diabetes mellitus without complications, E66.09 - Other obesity due to excess calories, E78.9 - Disorder of lipoprotein metabolism, unspecified, I10 - Essential (primary) hypertension, K76.0 - Fatty (change of) liver, not elsewhere classified, Z68.31 - Body mass index [BMI] 31.0-31.9, adult
[2025-04-16 13:01] VITALS: BP 120/76; PULSE 66; O2SAT 98; BMI 33.0
--- OUTSIDE RECORDS SUMMARY | 2025-04-16 14:03 | XMS_ITS | Patient Health Record ---
Author Organization [facility] Address [address] [place] [address] Care Team Providers Care Business Advisor Name Role Phone KUNAL BHAGAT Primary Care Provider Nicci Maldonado Unavailable [phone] Allergies Allergen (clinical drug ingredient) Drug/Non Drug [...] Problem Type II diabetes mellitus without complication (559757419) Type 2 diabetes mellitus without complications (E11.9) Active confirmed Problem History of dysplasia of cervix (598616403) Personal history of cervical dysplasia (Z87.410) Active confirmed Problem Type II diabetes mellitus without complication (747029984) Diabetes mellitus without mention of complication, type II or unspecified type, not stated as uncontrolled (250.00) Active confirmed Major Problem Benign essential hypertension (5120673) Essential hypertension, benign (401.1) Active confirmed Major Problem Endometriosis (244969120) Endometriosis of other specified sites (617.8) Active confirmed Diag Problem Endometriosis (699345302) Endometriosis, site unspecified (617.9) Active confirmed Major Problem Abdominal pain (32294053) Abdominal pain (789.0) Active confirmed Major Problem Right lower quadrant pain (199780839) Abdominal pain, right lower quadrant (789.03) Active confirmed Diag Problem Gynecological examination normal (015300521443588) Routine gynecological examination (V72.31) Active confirmed Major Problem Screening for malignant neoplasm of colon (419991279) Special screening for malignant neoplasms, colon (V76.51) Active confirmed Major Encounters Encounter Location Date Provider Diagnosis [address] [place] [address] 11/13/2024 Nicci Field Plan Of Treatment Pending [...] Provider Name:Nicci guillen, 05/07/2025 09:40:00 AM, [address], [address], [place], [address], Insurance Providers Payer Name Payer Address Payer Phone Subscriber Number Group Number Insured Name Patient Relationship to Insured Coverage Start Date Coverage End Date MEDICARE [address] [place] [id number] BETTY MCMILLAN Self - patient is the [...]
--- OUTSIDE RECORDS SUMMARY | 2025-04-16 14:03 | XMS_ITS | Patient Health Record ---
Author Organization [facility] Address [address] [place] [address] Care Team Providers Care Heel Varnisher Name Role Phone Felipe Brown Unavailable [phone] Reason For Referral No Information Plan Of Treatment No Information
== END 2025-04-16 13:19 | disposition home or self-care (01) ==
LOC: HO.HMCC 12:55
PROVIDERS: PCP Internal Medicine; Visit Provider Internal Medicine
DX: E13.9 Other specified diabetes mellitus without complications (principal); E66.09 Other obesity due to excess calories; Z68.31 Body mass index [BMI] 31.0-31.9, adult

== ENCOUNTER → 2025-04-16 12:54 | Outpatient (BNVA) | payer MEDICARE, MEDICAID, SELFPAY | PROVIDERS: PCP Internal Medicine; Visit Provider Internal Medicine | DX: I10 Essential (primary) hypertension (principal); E13.9 Other specified diabetes mellitus without complications; E66.09 Other obesity due to excess calories; K76.0 Fatty (change of) liver, not elsewhere classified; Z68.31 Body mass index [BMI] 31.0-31.9, adult; Z79.899 Other long term (current) drug therapy; Z68.33 Body mass index [BMI] 33.0-33.9, adult | CPT/HCPCS: 96127; 99212 ==

== ENCOUNTER 2025-05-11 07:50 | Outpatient (REF) | payer MEDICARE, MEDICAID, SELFPAY ==
--- OUTSIDE RECORDS SUMMARY | 2024-11-13 04:40 | XMS_ITS ---
Author Organization [employer] [facility] Address [address] [place] [address] Care Team Providers Care Bin Tripper Operator Name Role Phone LEOLA NABEELAugusto Primary Care Provider Nicci Maldonado Unavailable [phone] Allergies Allergen (clinical drug ingredient) Drug/Non Drug Allergy documented on EMR Reaction Allergy Type Onset Date Status PENICILLIN Skin Rash Drug Allergy Active REASON FOR VISIT HR MEDICARE PE (YELLOW FORM DONE) Social History Tobacco Use: Social History Observation Description Date Details (start date - stop date) Never Smoker NA - NA Sexual History Question Answer Notes Had sex in the past 12 months (vaginal, oral, or anal)? No AUDIT-C (Standard) Question Answer Notes Did you have a drink contain ing alcohol in the past year? Yes How often did you have a dri nk containing alcohol in the past year? Monthly or less (1 point) How many drinks did you have on a typical day when you were drinking in the past year? 1 or 2 drinks (0 point) How often did you have six o r more drinks on one occasion in the past year? Never (0 point) Points 1 Interpretation Negative Tobacco Control (Standard) Question Answer Notes Tobacco use: Nonsmoker Encounters Encounter Location Date Provider Diagnosis [facility] [employer] [facility] [address] [place] [address] 11/13/2024 Nicci Field Plan Of Treatment Next Appt Details Provider Name:Nicci guillen, 05/20/2026 08:20:00 AM, [address], [address], [place], [address], Progress Notes * MIRIAM MCMILLAN:[birth year] (65 yo F)Acc No.[id number]:11/13/2024 PROGRESS NOTES Patient: BETTY GOMEZ Appointment Provider: Augusto Field M.D. :1960 A ge:64 Y S ex:Female Date:11/13/2024 Address:[address] [place], [place] [address] Pcp:KUNAL BHAGAT Subjective: * Chief Complaints: * 1 . HR MEDICARE PE (YELLOW FORM DONE). * Medical History: O ther endometriosis, Right lower quadrant pain, Abdominal pain, Other specified diabetes mellitus without complications, Essential (primary) hypertension, Personal history of cervical dysplasia, Hormone replacement therapy (postmenopausal), Pelvic Pain, Type 2 diabetes mellitus without complications. 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 S exual activity n ot currently sexually active. L ast Pap Smear: 1 09/06/20 NIL, NEG HPV, 12/27/2016 NIL, NEG HRHPV. M ammogram: < 50% density (Last Mammo in [employer] [facility]), 08/25/20 < 50% density, 05/2016 JOEY [place], normal, 05/23/15 < 25% glandular, 2011. A bnormal Pap Smear: M any years ago, Negative pap smears since. L MP and menses H yst for Endometriosis. B irth Control: B ilateral Tubal Ligation. H ysterectomy: Y es, SHORTY/BSO for Endometriosis. C olonoscopy y es 2016 q 3 years, polyp removed - possible malignant. F/U in 6 months. B one Density: Normal. * OB History: T otal pregnancies 4 . T otal living children 3 . C -section(s) 3 . * Social History: T obacco Use: T obacco Control (Standard) T obacco use: N onsmoker S exual History: S exual History H ad sex in the past 12 months (vaginal, oral, or anal)? N o Details of Sexual History A re you sexually active? N o D rugs/Alcohol: D rugs H ave you used drugs other than those for medical reasons in the past 12 months? N o M iscellaneous: C hildren: yes, 3. Domestic violence: no. Exercise: yes, walking. Home smoke detector use: yes. Marital status: . Natural support system: yes. Occupation: Retired. Sexual abuse: no. Sexually active: no. Verbal abuse: no. D rug/Alcohol: A DIOR-C (Standard) D id you have a drink containing alcohol in the past year? Y es H ow often did you have a drink containing alcohol in the past year? M onthly or less (1 point) H ow many drinks did you have on a typical day when you were drinking in the past year? 1 or 2 drinks (0 point) H ow often did you have six or more drinks on one occasion in the past year? N ever (0 point) P oints 1 I nterpretation N egative * Allergies: P ENICILLIN: Skin Rash - Allergy. Objective: * Vitals: Assessment: Plan: * Treatment: * Images: Billing Information: * Visit Code: * Procedure Codes: * Electronic signature of Madisyn Field MD on 05/11/2025 at 07:53 AM EDT Sign off status: Pending * Appointment Provider: Augusto Field M.D. Date: 0 11/13/2024 Generated for Patricia callaway/Kinjal/Aiden on: 1 07:53 AM EDT
--- OUTSIDE RECORDS SUMMARY | 2025-05-07 05:40 | XMS_ITS ---
Author Organization [employer] [facility] Address [address] [place] [address] Care Team Providers Care Advisory Software Engineer Name Role Phone KUNAL BHAGAT Primary Care Provider Nicci Maldonado Unavailable [phone] Allergies Allergen (clinical drug ingredient) Drug/Non Drug Allergy documented on EMR Reaction Allergy Type Onset Date Status PENICILLIN Skin Rash Drug Allergy Active Results Component Value Reference Range Notes [id number] IGP No Culture 30 Plus (Not yet reviewed by provider) Interpretation: Performing Lab:[facility] [place], [address], [address], [place], Phone - [phone], Director - [facility] Notes/Report: Clinical Information:VAG [id number] LMP / Prev Treat...Hyst Dates / Results....07/06/2021 NIL NEG HPV No. of containers..01 ThinPrep Vial DIAGNOSIS: NEGATIVE FOR IN TRAEPITHELIAL LESION OR MALIGNANCY. Specimen adequacy: Satisfact ory for evaluation. Clinician provided ICD10: Z01.419 Z11.51 Performed by: Duglas Rod , Automat Car Attendant (ASCP) . . Note: The Pap smear is a screening test designed to aid in the detection of premalignant and malignant conditions of the uterine cervix. It is not a diagnostic procedure and should not be used as the sole means of detecting cervical cancer. Both false-positive and false-negative reports do occur. . Test Methodology: This liquid based ThinPrep(R) pap test was screened with the use of an image guided system. HPV Aptima Negative Negative This nucleic acid amplification test detects fourteen high-risk HPV types (16,18,31,33,35,39,45,51,52,56,58 ,59,66,68) without differentiation. HPV Genotype Reflex Criteria not met, HPV Genotype not performed. PDF Report (Not yet reviewed by provider) Interpretation: Performing Lab:[facility] [place], [address], [address], [place], Phone - [phone], Director - [facility] Notes/Report: Clinical Information:VAG [id number] LMP / Prev Treat...Hyst Dates / Results....07/06/2021 NIL NEG HPV No. 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 Physical 60-85+ Medications Medication SIG (Take, Route, Frequency, Duration) Notes Start Date End Date Status Ozempic (0.25 or 0.5 MG/DOSE) 2 MG/3ML as directed Subcutaneous Active Estradiol 0.0375 MG/24HR APPLY 1 PATCH T OPICALLY TO THE SKIN 2 TIMES A WEEK; Duration: 90 Active glipiZIDE 5 MG Oral; Duration: 90 Active Rosuvastatin Calcium 5 MG TAKE 1 TABLET BY MOUTH DAILY Oral; Duration: 90 Days Active Lisinopril 5 MG 1 tablet Orally Once a day; Duration: 30 day(s) Active Vitamin D3 25 MCG (1000 UT) 1 capsule Orally Once a day; Duration: 30 day(s) Active Estradiol 0.0375 MG/24HR 1 patch to skin Transdermal Two times a Week; Duration: 90 days 05/07/2025 Active Social History Tobacco Use: Social History [...] Problem Status W/U Status Risk Notes Problem Herpes simplex viral infection (22458444) Herpesviral infection, unspecified (B00.9) Active confirmed Vital Signs Temperature 97.3 degrees Fahrenheit 05/07/20 25 Blood pressure systolic 132 mm Hg 05/07/20 25 Blood pressure diastolic 72 mm Hg 025 Height 62.5 in 05/07/2025 Weight 183 lbs 05/07/2025 BMI 32.93 kg/m2 05/07/2025 Encounters Encounter Location Date Provider Diagnosis [address] [place] [address] 05/07/2025 Nicci Field Encounter for gynecological examination (general) (routine) without abnormal findings Z01.419 ; Encounter for screening for human papillomavirus (HPV) Z11.51 ; Encounter for screening mammogram for malignant neoplasm of breast Z12.31 ; Personal history of cervical dysplasia Z87.410 and Hormone replacement therapy Z79.890 Assessments Encounter Date Diagnosis (ICD Code) Assessment Notes Treatment Notes Treatment Clinical Notes Section Notes 05/07/2025 Encounter for gynecological examination (general) (routine) without abnormal findings (ICD-10 - Z01.419) PAP TEST WAS OBTAINED. 05/07/2025 Encounter for screening for human papillomavirus (HPV) (ICD-10 - Z11.51) HPV TYPING WAS ORDERED WITH PAP TEST. 05/07/2025 Encounter for screening mammogram for malignant neoplasm of breast (ICD-10 - Z12.31) REGULAR MAMMOGRAMS AND SBE'S WERE RECOMMENDED. 05/07/2025 Personal history of cervical dysplasia (ICD-10 - Z87.410) DISCUSSED PREVIOUS HX OF KAUR 3 AND SUBSEQUENTLY NEGATIVE PAP TESTS. 05/07/2025 Hormone replacement therapy (ICD-10 - Z79.890) DISCUSSED BENEFITS AND RISKS OF ERT. SHE HAS NO CONTRAINDICATIONS AND WANTS TO CONTINUE. SHE ACCEPTS RISKS. RX AND INSTRUCTIONS WERE GIVEN. Plan Of Treatment Medication Medication Name Sig Start Date Stop Date Notes Estradiol 0.0375 MG/24HR 1 patch to skin Transdermal Two times a Week; Duration: 90 days 05/07/2025 Treatment Notes Assessment Notes Encounter for gynecological examination (general) (routine) without abnormal findings PAP TEST WAS OBTAINED. Encounter for screening for human papillomavirus (HPV) HPV TYPING WAS ORDERED WITH PAP TEST. Encounter for screening mamm ogram for malignant neoplasm of breast REGULAR MAMMOGRAMS AND SBE'S WERE RECOMMENDED. Personal history of cervical dysplasia D ISCUSSED PREVIOUS HX OF KAUR 3 AND SUBSEQUENTLY NEGATIVE PAP TESTS. Hormone replacement therapy DISCUSSED BENEFITS AND RISKS OF ERT. SHE HAS NO CONTRAINDICATIONS AND WANTS TO CONTINUE. SHE ACCEPTS RISKS. RX AND INSTRUCTIONS WERE GIVEN. Pending Test Test Name Order Date MAMMOGRAM, SCREENING 05/07/2025 MM Digital Mammo Screening 05/07/[id number] IGP No Culture 30 Plus 2024 PDF Report 05/07/2025 Next Appt Details Follow Up: 1 Year, Reason: Provider Name:Nicci guillen, 05/20/2026 08:20:00 AM, [address], [address], [place], [address], Progress Notes * HARINDER MCMILLANKELSEYB:[birth year] (65 yo F)Acc No.[id number]:05/07/2025 PROGRESS NOTES Patient: BETTY GOMEZ Appointment Provider: Augusto Field M.D. :1960 A ge:65 Y S ex:Female Date:05/07/2025 Address:[address] [place] [address], [facility] Pcp:KUNAL BHAGAT Subjective: * Chief Complaints: * H R MEDICARE PEAnnual SLEEVE FIXER Physical 60-85+ * HPI: N ew/Follow-up Patient Consult: COLLIN UNDERWENT TAHBSO IN 1998 FOR SEVERE ENDOMETRIOSIS PERFORMED BY DR LOTT. SHE HAS BEEN ON ERT SINCE THEN AND IS DOING WELL. SHE USES ESTRADIOL PATCH 0.0375 MG TWICE WEEKLY. SHE IS AND NOT SEXUALLY ACTIVE. SHE UNDERWENT CRYOTHERAPY IN 1986 FOR KAUR 3. SUBSEQUENT PAP TESTS INCLUDING HER LAST ONE IN 2020 HAVE BEEN NEGATIVE AND HPV NEGATIVE. HER LAST MAMMOGRAM DONE IN OCTOBER 2022 SHOWED BREASTS ARE NOT DENSE AND WAS NORMAL. SHE HAS ANOTHER APPT THIS APR 2025. HER LAST BMD IN 2022 WAS NORMAL. SHE HAD A COLONOSCOPY DONE IN 2016 AND HAS AN APPT FOR ANOTHER ONE IN JUN 2025. A nnual: Patient presents for annual exam, ages 60-85, postmenopausal. General Health Maintenance: C urrent breast complaints: n o breast pain, mass, discharge, or skin changes U rinary problems: p atient reports no urinary health problems or bowel health problems C alcium intake: t erma adequate calcium via diet and supplementation S ignificant SLEEVE FIXER problems: n o significant maintenance groundskeeper symptoms or problems * ROS: g eneral: no c hest pain. n o p alpitations. n o h eadache. n o c ough. n o s hortness of breath. n o f ever. n o u nexplained weight loss. n o n ausea/vomiting. n o c hange in bowel movements. n o blood in stool. n o g enitourinary complaints. n o s kin complaints. ? 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 S exual activity n ot currently sexually active. L ast Pap Smear: 1 09/06/20 NIL, NEG HPV, 12/27/2016 NIL, NEG HRHPV. M ammogram: < 50% density (Last Mammo in [facility]), 08/25/20 < 50% density, 05/2016 [facility] [place], normal, 05/23/15 < 25% glandular, 2011. A bnormal Pap Smear: M any years ago, Negative pap smears since. L MP and menses H yst for Endometriosis. H istory of STD's: H SV 07/19. B irth Control: B ilateral Tubal Ligation. H ysterectomy: Y es, SHORTY/BSO for Endometriosis. C olonoscopy y es 2016 q 3 years, polyp removed - possible malignant. F/U in 6 months. B one Density: Normal. * OB History: T otal pregnancies 4 . T otal living children 3 . C -section(s) 3 . * Surgical History: B ilateral Tubal Ligation x 3 Colonoscopy Spinal Sugery SHORTY/BSO * Hospitalization/Major Diagno stic Procedure: S ee Surgical Hx * Family History: M other: 86 yrs, Mouth Cancer. F ather: 42 yrs, Coronary Artery Disease.?Maternal Grand Mother: Stomach Cancer. Sister: Ovarian Cancer. * Social History: T obacco Use: T [...] oints 1 I nterpretation N egative * Medications: T akingOzempic (0.25 or 0.5 MG/DOSE) 2 MG/3ML Solution Pen-injector as directed Subcutaneous Lisinopril 5 MG Tablet 1 tablet Orally Once a day Vitamin D3 25 MCG (1000 UT) Capsule 1 capsule Orally Once a day glipiZIDE 5 MG Tablet Oral Estradiol 0.0375 MG/24HR Patch Twice Weekly APPLY 1 PATCH TOPICALLY TO THE SKIN 2 TIMES A WEEK Rosuvastatin Calcium 5 MG Tablet TAKE 1 TABLET BY MOUTH DAILY Oral Taking Ozempic (0.25 or 0.5 MG/DOSE) 2 MG/3ML Solution Pen-injector as directed Subcutaneous Taking Lisinopril 5 MG Tablet 1 tablet Orally Once a day Taking Vitamin D3 25 MCG (1000 UT) Capsule 1 capsule Orally Once a day Taking glipiZIDE 5 MG Tablet Oral Taking Estradiol 0.0375 MG/24HR Patch Twice Weekly APPLY 1 PATCH TOPICALLY TO THE SKIN 2 TIMES A WEEK Taking Rosuvastatin Calcium 5 MG Tablet TAKE 1 TABLET BY MOUTH DAILY Oral DiscontinuedEstradiol 0.0375 MG/24HR Patch Weekly APPLY 1 PATCH TOPICALLY TO CLEAN, DRY SKIN ONE DAY A WEEK Medication List reviewed and reconciled with the patientDiscontinued Estradiol 0.0375 MG/24HR Patch Weekly APPLY 1 PATCH TOPICALLY TO CLEAN, DRY SKIN ONE DAY A WEEK Medication List reviewed and reconciled with the patient * Allergies: P ENICILLIN: Skin Rash - Allergyno[Allergies Verified] Objective: * Vitals: H t: 62.5 in, Wt: 183 lbs, BMI:32.93Index, BP: 132/72 mm Hg, Temp: 97.3 F. * Examination: G eneral Exam: CONSTITUTIONAL: G eneral Appearance: a lert, in no acute distress, normal, well nourished NECK/THYROID: I nspection/Palpation: n ormal T hyroid: n ormal size and shape RESPIRATORY: A uscultation: clear to auscultation bilaterally, Respiratory Effort: normal. CARDIOVASCULAR: A uscultation: regular rate and rhythm.? BREAST, Right: I nspection/Palpation: n o discharge, no masses present, no nipple retraction, no skin changes, no skin dimpling, no tenderness, no lymphadenopathy, no axillary mass, no axillary tenderness BREAST, Left: I nspection/Palpation: n o discharge, no masses present, no nipple retraction, no skin changes, no skin dimpling, no tenderness, no lymphadenopathy, no axillary mass, no axillary tenderness GASTROINTESTINAL: A bdomen: n o masses, nontender, nondistended L iver and Spleen: n ormal H ernias: n o hernias present, no inguinal adenopathy MUSCULOSKELETAL: I nspection/Palpation: n o clubbing, cyanosis, or edema SKIN: S kin: n ormal NEURO/PSYCH: O rientation: t emmanuelle , place, person M ood/Affect: n ormal G enitourinary: EXTERNAL GENITALIA: E xternal Genitalia: n ormal, no lesions VAGINA: V agina: n ormal appearance, no abnormal discharge, no lesions BLADDER: B ladder: n o mass, nontender URETHRA: U rethra: n o erythema or lesions present CERVIX: C ervix: s urgically absent UTERUS: U terus: s urgically absent ADNEXA: A dnexa: s urgically absent ANUS AND PERINEUM: A nus/Perineum: v isually normal Assessment: * Assessment: 1. E ncounter for gynecological examination (general) (routine) without abnormal findings - Z01.419 (Primary) 2 . E ncounter for screening for human papillomavirus (HPV) - Z11.51 3 . E ncounter for screening mammogram for malignant neoplasm of breast - Z12.31 4 . P ersonal history of cervical dysplasia - Z87.410 5 .?Hormone replacement therapy - Z79.890 Plan: * Treatment: Notes: PAP TEST WAS OBTAINED.??2.?Encounter for screening for human papillomavirus (HPV)?LAB: [id number] IGP No Culture 30 Plus (Collection Date & Time - 05/07/2025 10:29 AM)* VAG Notes: HPV TYPING WAS ORDERED WITH PAP TEST.??3.?Encounter for screening mammogram for malignant neoplasm of breast?Imaging: MM Digital Mammo Screening Notes: REGULAR MAMMOGRAMS AND SBE'S WERE RECOMMENDED.??4.?Personal history of cervical dysplasia? Notes: DISCUSSED PREVIOUS HX OF KAUR 3 AND SUBSEQUENTLY NEGATIVE PAP TESTS.?? 5.?Hormone replacement therapy? Start Estradiol Patch Twice Weekly, 0.0375 MG/24HR, 1 patch to skin, Transdermal, Two times a Week,90 days, 24 Patch, Refills 3.?? Notes: DISCUSSED BENEFITS AND RISKS OF ERT. SHE HAS NO CONTRAINDICATIONS AND WANTS TO CONTINUE. SHE ACCEPTS RISKS. RX AND INSTRUCTIONS WERE GIVEN.?? * Imaging: * I maging: MAMMOGRAM, SCREENING * Procedure Codes: 9 9459 PELVIC EXAMINATION * Preventive Medicine: YOUR PREVENTIVE WELLNESS PLAN: O steoporosis prevention C alcium, D, strength training. B reast Cancer Screening (Mammogram): a nnually. C ervical Cancer Screening (Pap Smear): q 3 years with HPV screen. C olorectal Cancer Screening: q 10 years. * Follow Up: 1 Year * Images: Billing Information: * Visit Code: [id number] Preventive Care Est Pt. Age 65 and over. * Procedure Codes: 65708 PELVIC EXAMINATION. * Sign off status: Completed true * Appointment Provider: Augusto Field M.D. Date: Generated for Patricia callaway/Kinjal/Yahairaitting on: 07:54 AM EDT History and Physical Notes * HPI (History of Present Illness) Category Sub-Category Detail Notes Category Not es New/Follow-up Patient Consult COLLIN UNDERWENT TAHBSO IN 1998 FOR SEVERE ENDOMETRIOSIS PERFORMED BY DR LOTT. SHE HAS BEEN ON ERT SINCE THEN AND IS DOING WELL. SHE USES ESTRADIOL PATCH 0.0375 MG TWICE WEEKLY. SHE IS AND NOT SEXUALLY ACTIVE. SHE UNDERWENT CRYOTHERAPY IN 1986 FOR KAUR 3. SUBSEQUENT PAP TESTS INCLUDING HER LAST ONE IN 2020 HAVE BEEN NEGATIVE AND HPV NEGATIVE. HER LAST MAMMOGRAM DONE IN OCTOBER 2022 SHOWED BREASTS ARE NOT DENSE AND WAS NORMAL. SHE HAS ANOTHER APPT THIS APR 2025. HER LAST BMD IN 2022 WAS NORMAL. SHE HAD A COLONOSCOPY DONE IN 2016 AND HAS AN APPT FOR ANOTHER ONE IN JUN 2025. Annual General Health Maintenance: Current breast complaints:: no breast pain, mass, discharge, or skin changes Urinary problems:: patient r eports no urinary health problems or bowel health problems Calcium intake:: takes adequ ate calcium via diet and supplementation Significant SLEEVE FIXER problems:: n o significant maintenance groundskeeper symptoms or problems Examination Category Sub-Category Detail Notes Category Not es General Exam CONSTITUTIONAL: General Appearan ce:: alert, in no acute distress, normal, well nourished NECK/THYROID: Thyroid:: normal size and shape Inspection/Palpation:: normal RESPIRATORY: Auscultation: clear to auscultation bilaterally, Respiratory Effort: normal CARDIOVASCULAR: Auscultation: regula r rate and rhythm GASTROINTESTINAL: Hernias:: no hernias present, no inguinal adenopathy Liver and Spleen:: normal Abdomen:: no masses, nontender, nondiste nded MUSCULOSKELETAL: Inspection/Palpation:: no clubb ing, cyanosis, or edema SKIN: Skin:: normal NEURO/PSYCH: Mood/Affect:: normal Orientation:: time , place, person BREAST, Right: Inspection/Palpation :: no discharge, no masses present, no nipple retraction, no skin changes, no skin dimpling, no tenderness, no lymphadenopathy, no axillary mass, no axillary tenderness BREAST, Left: Inspection/Palpation :: no discharge, no masses present, no nipple retraction, no skin changes, no skin dimpling, no tenderness, no lymphadenopathy, no axillary mass, no axillary tenderness Genitourinary EXTERNAL GENITALIA: External Genitalia:: nor mal, no lesions VAGINA: Vagina:: normal appearance, no a bnormal discharge, no lesions BLADDER: Bladder:: no mass, nontender URETHRA: Urethra:: no erythema or lesions present CERVIX: Cervix:: surgically absent UTERUS: Uterus:: surgically absent ADNEXA: Adnexa:: surgically absent ANUS AND PERINEUM: Anus/Perineum:: visually norm al
--- OUTSIDE RECORDS SUMMARY | 2025-05-11 07:54 | XMS_ITS | Patient Health Record ---
Author Organization [employer] [facility] Address [address] [place] [address] Care Team Providers Care Skidder Runner Name Role Phone KUNAL BHAGAT Primary Care Provider Nicci Maldonado Unavailable [phone] Allergies Allergen (clinical drug ingredient) Drug/Non Drug Allergy documented on EMR Reaction Allergy Type Onset Date Status PENICILLIN Skin Rash Drug Allergy Active Results Component Value Reference Range Notes [id number] IGP No Culture 30 Plus (Not yet reviewed by provider) Interpretation: Performing Lab:[facility] [place], [address], [address], [place], Phone - [phone], Director - [facility] Notes/Report: Clinical Information:VAG [id number] LMP / Prev Treat...Hyst Dates / Results....07/06/2021 NIL NEG HPV No. of containers..01 ThinPrep Vial DIAGNOSIS: NEGATIVE FOR IN TRAEPITHELIAL LESION OR MALIGNANCY. Specimen adequacy: Satisfact ory for evaluation. Clinician provided ICD10: Z01.419 Z11.51 Performed by: Duglas Rod , Beader Tender (ASCP) . . Note: The Pap smear [...] [address], [address], [place], Phone - [phone], Director - Ricardo Notes/Report: Clinical Information:VAG [id number] LMP / Prev Treat...Hyst Dates / Results....07/06/2021 NIL NEG HPV No. of containers..01 ThinPrep Vial Reason For Referral No Information Medications Medication SIG (Take, Route, Frequency, Duration) Notes Start Date End Date Status Lisinopril 5 MG 1 tablet Orally Once a day; Duration: 30 day(s) Active Ozempic (0.25 or 0.5 MG/DOSE) 2 MG/3ML as directed Subcutaneous Active Estradiol 0.0375 MG/24HR APPLY 1 PATCH T OPICALLY TO THE SKIN 2 TIMES A WEEK; Duration: 90 Active glipiZIDE 5 MG Oral; Duration: 90 Active Vitamin D3 25 MCG (1000 UT) 1 capsule Orally Once a day; Duration: 30 day(s) Active Estradiol 0.0375 MG/24HR 1 patch to skin Transdermal Two times a Week; Duration: 90 days 05/07/2025 Active Rosuvastatin Calcium 5 MG TAKE 1 TABLET BY MOUTH DAILY Oral; Duration: 90 Days Active Social History Tobacco Use: Social History [...] Risk Notes Problem Herpes simplex viral infection (54871584) Herpesviral infection, unspecified (B00.9) Active confirmed Problem Type II diabetes mellitus without complication (428924666) Type 2 diabetes mellitus without complications (E11.9) Active confirmed Problem History of dysplasia of cervix (296719381) Personal history of cervical dysplasia (Z87.410) Active confirmed Problem Type II diabetes mellitus without complication (986409632) Diabetes mellitus without mention of complication, type II or unspecified type, not stated as uncontrolled (250.00) Active confirmed Major Problem Benign essential hypertension (5058258) Essential hypertension, benign (401.1) Active confirmed Major Problem Endometriosis (779132682) Endometriosis of other specified sites (617.8) Active confirmed Diag Problem Endometriosis (664152169) Endometriosis, site unspecified (617.9) Active confirmed Major Problem Abdominal pain (93740061) Abdominal pain (789.0) Active confirmed Major Problem Right lower quadrant pain (165855760) Abdominal pain, right lower quadrant (789.03) Active confirmed Diag Problem Gynecological examination normal (217013729711160) Routine gynecological examination (V72.31) Active confirmed Major Problem Screening for malignant neoplasm of colon (863125917) Special screening for malignant neoplasms, colon (V76.51) Active confirmed Major Vital Signs Temperature 97.3 degrees Fahrenheit 05/07/2025 Blood pressure diastolic 72 mm Hg 05/07/2025 Height 62.5 in 05/07/2025 Blood pressure systolic 132 mm Hg 05/07/2025 Weight 183 lbs 05/07/2025 BMI 32.93 kg/m2 05/07/2025 Encounters Encounter Location Date Provider Diagnosis [facility] [place] [address] [place] [address] 11/13/2024 Nicci Field [place] [address] [facility] [address] [place] [address] 05/07/2025 Nicci Field Encounter for gynecological examination [...] AND INSTRUCTIONS WERE GIVEN. 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 THIN PREP,HPV,CORA IF HPV+ (>29YR)(SCRN) 12/28/2016 URINE CULTURE 10/03/2017 BONE DENSITY 10/05/2022 MM Digital Mammo Screening 05/07/2025 MM Digital Mammo Screening 12/28/2016 MM Digital Mammo Screening 03/15/2018 MM Digital Mammo Screening 11/08/2023 MM Digital Mammo Screening 10/05/2022 MM Digital Mammo Screening 06/28/2019 MM Digital Mammo Screening 07/06/2021 COMPLETE URINALYSIS 09/30/2017 [id number] IGP No Culture 30 Plus 2024 PDF Report 05/07/2025 Next Appt Details Provider Name:Nicci guillen, 05/20/2026 08:20:00 AM, [address], [address], [place], [address], Insurance Providers Payer Name Payer Address Payer Phone Subscriber Number Group Number Insured Name Patient Relationship to Insured Coverage Start Date Coverage End Date MEDICARE [address] [place] [id number] [phone] [id number] BETTY MCMILLAN Self - patient is the [...] 2 diabetes mellitus without complic ations E11.9 Herpesviral infection, unspecified B00.9 Surgical History Surgery Date(Month/Year) Bilateral Tubal Ligation x 3 Colonoscopy Spinal Sugery SHORTY/BSO Hospitalization History Reason Date(Month/Year) See Surgical Hx
--- OUTSIDE RECORDS SUMMARY | 2025-05-11 07:54 | XMS_ITS | Patient Health Record ---
Author Organization [facility] Address [address] [place] [address] Care Team Providers Care Calender Roll Operator Name Role Phone Felipe Brown Unavailable [phone] Reason For Referral No Information Plan Of Treatment No Information
== END 2025-05-11 07:51 | disposition home or self-care (01) ==
LOC: HO.MAMMO 07:50
PROVIDERS: Absent Provider Obstetrics & Gynecology Gynecology; PCP Internal Medicine; Visit Provider Internal Medicine
DX: Z12.31 Encounter for screening mammogram for malignant neoplasm of breast (principal)
CPT/HCPCS: 77063; 77067

== ENCOUNTER → 2025-05-11 08:15 | Outpatient (BNV) | payer MEDICARE, MEDICAID, SELFPAY | PROVIDERS: Absent Provider Obstetrics & Gynecology Gynecology; PCP Internal Medicine; Visit Provider Internal Medicine | DX: Z12.31 Encounter for screening mammogram for malignant neoplasm of breast (principal) | CPT/HCPCS: 77063; 77067 ==

== ENCOUNTER 2025-06-19 06:18 | Outpatient (REF) | payer MEDICARE, MEDICAID, SELFPAY ==
[2025-06-19 10:36] LABS: INTERNATIONAL NORM RATIO 0.9 (0.9-1.1); Prothrombin Time 11.5 SEC (11.2-13.5)
[2025-06-19 11:00] LABS: Lipase 35 U/L (8-78)
[2025-06-19 11:08] LABS: Ferritin 51 ng/mL (10-250)
[2025-06-19 11:26] LABS: HBS Num1 0.96 mIU/mL (0-7.99); HBc Num1 0.10 S/CO (0.00-0.79); HBsAGNum1 0.47 S/CO (0.00-0.99); HIV Num 1 0.09 S/CO (0.00-0.99); Hepatitis A Antibody IgM 0.16 Index (0-0.79); Hepatitis B Surface Antigen Negative (Negative); ~HepC Num1 0.10 S/CO (0.00-0.79); ~Hepatitis A Antibody IgM Nonreactive (Nonreactive); ~Hepatitis B Surface Antibody NONREACTIVE (Nonreactive); ~Hepatitis C Antibody Nonreactive (Nonreactive)
[2025-06-20 11:18] LABS: Anti Nuclear Antibody Screen NEGATIVE (NEGATIVE)
[2025-06-21 05:48] LABS: ~Hepatitis A Antibody IgG 0.33 S/CO (0.00-0.99)
== END 2025-06-19 06:19 | disposition home or self-care (01) ==
LOC: HO.HMGCLDS 06:18
PROVIDERS: PCP Internal Medicine; Visit Provider Nurse Practitioner Family
DX: R79.89 Other specified abnormal findings of blood chemistry (principal); Z11.4 Encounter for screening for human immunodeficiency virus [HIV]; Z51.81 Encounter for therapeutic drug level monitoring; Z01.84 Encounter for antibody response examination
CPT/HCPCS: 36415; 82728; 83690; 85610; 86015; 86038; 86364; 86381; 86704; 86706; 86708; 86709; 86803; 87340; 87389

== ENCOUNTER 2025-06-25 07:55 | Outpatient (AMB) | payer MEDICARE, MEDICAID, SELFPAY ==
--- NOTE | 2025-06-25 08:02 | A.OFFPC_ITS ---
Vital Signs 06/25/25 08:13 Height 5 ft 3 in Weight 183 lb 2 oz BMI 32.4 Intake Visit Reasons: 3 mo follow up Allergies Penicillins Allergy (Mild, Verified 04/16/25 13:01) RASH Medication List - Last Reconciled 06/25/25 by Isiah Oliva MD blood sugar diagnostic (FreeStyle Lite Strips) Use to check fasting blood sugar and random blood sugar daily blood-glucose meter (FreeStyle Lite Meter kit) Use to check fasting blood sugar and a random blood sugar during the day. cholecalciferol (vitamin D3) 10 mcg PO DAILY estradiol 1 patch topical 2XW glipizide 10 mg PO BID 90 days lancets (FreeStyle Lancets) Use to check fasting blood sugar and random blood sugar daily lisinopril 30 mg PO DAILY 90 days rosuvastatin 5 mg PO DAILY 90 days semaglutide 0.5 mg (0.736 mL) subcut QWEEK 30 days Tobacco use date assessed: 04/16/25 Dental Screening Dental Screen Date: 04/16/25 HPI 3 mo follow up HPI Details This is a telemedicine visit. Patient is taking waggly injections .5 mg. Her weight yesterday was 183.2 lbs , patient would like to go up on dose to 1 mg Sugars has been running really good. They are in range of 83 to 102 fasting She is due for blood test or placed to be fasting. She is tolerating all her medications no side effects. She will return in three months. Follow up appointment. [facility] Medical History Gastritis Elevated LFTs Lipid disorder Chronic GERD Fatty liver Diabetes 1.5, managed as type 2 Hypertension, essential Surgical History H/O colonoscopy History of esophagogastroduodenoscopy (EGD) History of microdiscectomy History of hysterectomy History of appendectomy History of tonsillectomy History of section Family History Father CVD (cardiovascular disease) History of heart attack Mother Mouth cancer Diabetes mellitus History of open heart surgery Brother Heart problem Brother History of open heart surgery Brother History of open heart surgery Daughter No problems noted. Son No problems noted. Son No problems noted. Sister No problems noted. Sister No problems noted. Sister No problems noted. Sister No problems noted. Social History Housing: House Alcohol intake: current Alcohol intake frequency: a few times a month Patient Tobacco Use Status: Former Tobacco user Years Smoked: 5 yrs e-Cigarette/Vaping Use: Never Used Current occupational status: unemployed Cognitive needs: No Hearing needs: No Vision needs: Yes Questionnaire Thrive Questionnaire Date Thrive assessed: 04/12/25 I am a: Patient What is your living situation today?: I choose not to answer this question Within the past 12 months, did the food you bought not last and you didn't have the money to get more?: I choose not to answer this question Within the past 12 months, did you worry whether your food would run out before you got money to buy more?: I choose not to answer this question Do you have trouble paying for medicines?: I choose not to answer this question Do you have trouble getting transportation to medical appointments?: I choose not to answer this question Do you have trouble paying your heating and electricity bill?: I choose not to answer this question Do you have trouble taking care of your child, family member or friend?: I choose not to answer this question Do you have trouble with day-to-day activities such as bathing, preparing meals, shopping, managing finances, etc.?: I choose not to answer this question Are you currently unemployed and looking for a job?: I choose not to answer this question Are you interested in more education?: I choose not to answer this question Please select the resources that you would like help with: None Currently or been in a relationship where the following occur: I choose not to answer THRIVE Score: 0 MARBELLA-7 AMB Questionnaire MARBELLA-7 Date MARBELLA - 7 assessed: 04/16/25 Source: Developed by Drs. Felipe Dumont, Sigrid Call, Charles Nye and colleagues, with an educational sabina from [employer]. Review of Systems Const Denies chills and Denies fever(s) ENT Denies epistaxis and Denies nasal discharge Card Denies chest pain Resp Denies chest congestion, Denies cough and Denies hemoptysis GI Denies diarrhea and Denies nausea Skin/Breast Denies rash Neuro Reports no additional complaints Psych Reports no additional complaints Endo Reports no additional complaints Physical exam (Primary Care) Tobacco/Smoking Status: Tobacco use Status Tobacco use date assessed 04/16/25 06/24/25 15:12 Patient Tobacco Use Status Former Tobacco user 06/24/25 15:12 e-Cigarette/Vaping Use Never Used 06/24/25 15:12 Thrive Assessment: Date of Thrive Assessment Date Thrive assessed 04/12/25 06/24/25 15:12 Currently or been in a relationship where the following occur: I choose not to answer Telehealth Telehealth [facility]health [facility] Location of provider rendering services: practice address Location of patient: address on file Patient Identification confirmed using: Name, : Yes Telehealth method: video Patient verbally consented to treatment: Yes Patient verbally consented to billing insurance company: Yes Patient informed of any privacy concerns related to visit: Yes Minutes spent on Phone/Video with Pt.: 13 Coding Level of Care Code Tele Est Pt Level 3 (70866) Diagnoses Hypertension, essential I10 Diabetes 1.5, managed as type 2 E13.9 Lipid disorder E78.9 Class 1 obesity due to excess calories with serious comorbidity and body mass index (BMI) of 31.0 to 31.9 in adult E66.09; Z68.31 Obesity classification: adult class 1 (BMI 30 - 34.9) Serious obesity comorbidity presence: with serious comorbidity Body mass index: BMI 31.0-31.9 Assessment & Plan Assessment & Plan (1) Hypertension, essential: Code(s): I10 - Essential (primary) hypertension Category: Medical (2) Diabetes 1.5, managed as type 2: Code(s): E13.9 - Other specified diabetes mellitus without complications Category: Medical (3) Lipid disorder: Code(s): E78.9 - Disorder of lipoprotein metabolism, unspecified Category: Medical (4) Obesity due to excess calories: Code(s): E66.09 - Other obesity due to excess calories Category: Medical Qualifiers: Obesity classification: adult class 1 (BMI 30 - 34.9) Serious obesity comorbidity presence: with serious comorbidity Body mass index: BMI 31.0-31.9 Qualified Code(s): E66.09 - Other obesity due to excess calories; Z68.31 - Body mass index [BMI] 31.0-31.9, adult Plan Patient is taking waggly injections .5 mg. Her weight yesterday was 183.2 lbs , patient would like to go up on dose to 1 mg Sugars has been running really good. They are in range of 83 to 102 fasting Bp is well controlled med list reviewed She is due for blood test or placed to be fasting. She is tolerating all her medications no side effects. She will return in three months. Follow up appointment. Orders: Orders Hemoglobin A1c Today E13.9 - Other specified diabetes mellitus without complications, E66.09 - Other obesity due to excess calories, E78.9 - Disorder of lipoprotein metabolism, unspecified, I10 - Essential (primary) hypertension, Z68.31 - Body mass index [BMI] 31.0-31.9, adult Complete Blood Count Auto Diff Today E13.9 - Other specified diabetes mellitus without complications, E66.09 - Other obesity due to excess calories, E78.9 - Disorder of lipoprotein metabolism, unspecified, I10 - Essential (primary) hypertension, Z68.31 - Body mass index [BMI] 31.0-31.9, adult Microalbumin, Random (w Creat) Today E13.9 - Other specified diabetes mellitus without complications, E66.09 - Other obesity due to excess calories, E78.9 - Disorder of lipoprotein metabolism, unspecified, I10 - Essential (primary) hypertension, Z68.31 - Body mass index [BMI] 31.0-31.9, adult Comprehensive [place]. Panel Fast Today E13.9 - Other specified diabetes mellitus without complications, E66.09 - Other obesity due to excess calories, E78.9 - Disorder of lipoprotein metabolism, unspecified, I10 - Essential (primary) hypertension, Z68.31 - Body mass index [BMI] 31.0-31.9, adult Lipid Panel Today E13.9 - Other specified diabetes mellitus without complic ations, E66.09 - Other obesity due to excess calories, E78.9 - Disorder of lipoprotein metabolism, unspecified, I10 - Essential (primary) hypertension, Z68.31 - Body mass index [BMI] 31.0-31.9, adult TSH reflex Free T4 Today E13.9 - Other specified diabetes mellitus without complications, E66.09 - Other obesity due to excess calories, E78.9 - Disorder of lipoprotein metabolism, unspecified, I10 - Essential (primary) hypertension, Z68.31 - Body mass index [BMI] 31.0-31.9, adult Medications: Changed From semaglutide for 4 weeks 0.5 mg (0.736 mL) subcut QWEEK 30 days 3.68 mL 1RF E13.9 - Other specified diabetes mellitus without complications, E66.09 - Other obesity due to excess calories, E78.9 - Disorder of lipoprotein metabolism, unspecified, I10 - Essential (primary) hypertension, K76.0 - Fatty (change of) liver, not elsewhere classified, Z68.31 - Body mass index [BMI] 31.0-31.9, adult To semaglutide for 4 weeks 1 mg (0.75 mL) subcut QWEEK 3.75 mL 0RF 30 days E13.9 - Other specified diabetes mellitus without complications, E66.09 - Other obesity due to excess calories, E78.9 - Disorder of lipoprotein metabolism, unspecified, I10 - Essential (primary) hypertension, K76.0 - Fatty (change of) liver, not elsewhere classified, Z68.31 - Body mass index [BMI] 31.0-31.9, adult
[2025-06-25 08:13] VITALS: BMI 32.4
== END 2025-06-25 08:55 | disposition home or self-care (01) ==
LOC: HO.HMCC 07:56
PROVIDERS: PCP Internal Medicine; Visit Provider Internal Medicine
DX: I10 Essential (primary) hypertension (principal); E13.9 Other specified diabetes mellitus without complications; E78.9 Disorder of lipoprotein metabolism, unspecified; E66.09 Other obesity due to excess calories; Z68.31 Body mass index [BMI] 31.0-31.9, adult